=== PATIENT | male | born 1955 | race Caucasian/White ===

== ENCOUNTER 2021-01-28 16:44 | Emergency (ER) | payer MEDICARE, OTHER ==
--- OUTSIDE RECORDS SUMMARY | 2021-01-28 16:48 | XMS REPORT | Continuity of Care Document ---
:[address] [facility] t Address [address] [place] [address] Care Team Providers Name Role Phone Ian MITCHELL Primary Care Physician Ian MITCHELL Attending Clinician Kelly LAMBERT Attending Clinician Unavailable Lana MARCUS Attending Clinician Unavailable Payers Payer Name Policy Type Policy Effective Date Expiration Date Sour ce Number [facility] [id number] [facility] - MEDICARE MGD 00:00:00 - Medical CAREAARP/MEDICARE Center [id number] 2019-Present Problems Condition Condition Condition Status Onset Resolution Last Treating Co mments Source Name Details Category Date Date Treatment Clinician Date Acute pain Acute pain Disease Active [facility] left of left 3-09 [facility] knee knee [facility] 00 [facility] [place] Disease Active [facility] cardiac cardiac 2-02 [facility] - risk risk 00:00: Medical 10-20% in 10-20% in 00 Cent er next 10 next 10 years years Acquired Acquired Disease Active 2015-12 [facility] hypothyroi hypothyroi 0-14 Mikaela kes - dism dism 00:00: Medical 00 Center Non-tobacc Non-tobacc Disease Active C [facility] o user o user 7-06 [facility] - 00:[facility]: Medical 00 Center Dyslipidem Dyslipidem Disease Active C [facility] ia ia 2-18 [facility] - 00:00: Medical 00 Center Obesity, Obesity, Disease Active 2013-12 [facility] Class II, Class II, 1-18 [facility] - BMI BMI 00:00: Medical 35-39.9 35-39.9 Center HTN HTN Disease Active [facility] (hypertens (hypertens 7-17 [facility] ion), ion), 00:00: Medical benign benign [address] [place] [address] Otitis Otitis Disease Resolve 2020-08-31 2020-08-31 [facility] media media d 7-16 00:00:00 20:54:13 [facility] - 00:00: Medical [address] [place] [address] Allergies, Adverse Reactions, Alerts This patient has no known allergies or adverse reactions. Family History Family Member Diagnosis Comments Start Date Stop Date Source Natural brother Hyperlipidemia [facility] S [facility] Natural brother Hypertension [facility] Natural father Alzheimer's disease C [facility] Natural father Hypertension [facility] Natural mother Dementia [facility] Natural mother Hyperlipidemia [facility] Social History Social Habit Start Date Stop Date Quantity Comments Source History of Snuff User [facility] tobacco use Medical Cente r Sex Assigned At [facility] Tobacco use and 2020-08-31 2020-08-31 Current user [facility] - exposure 00:00:00 00:00:00 [facility] Alcohol intake 2020-08-31 2020-08-31 Current drinker [facility] - 00:00:00 00:00:00 of alcohol [facility] (finding) Alcohol Comment 2020-02-10 2020-02-10 several times a [facility] - 00:00:00 00:00:00 week [facility] Smoking Status Start Date Stop Date Source Former smoker 2020-08-31 00:00:00 2020-08-31 00:00:00 [facility] Medications Ordered Filled Start Stop Current Ordering Indication Dosage Frequency Signature Comments Components Source Medication Medication Date Date Medication? Clinician (SIG) Name Name lisinopril- Yes HTN 2 tabs [address] [facility] hydroCHLORO 2-05 (hypertensi daily in [facility] - thiazide 00:00: on), benign AM. Me dical (PRINZIDE,Z 00 Center ESTORETIC) 20-12.5 mg per tablet levothyroxi 2019-12 Yes Acquired Take [address] ne 2-14 hypothyroid (50 mcg) [facility] - (SYNTHROID, 00:00: ism po daily Me dical LEVOTHROID) 00 Fri-d Ce nter 50 MCG ay. Take tablet 11/2 tab (75 mcg) . atorvastati 2019-12- Yes Dyslipidemi 20mg QD Take [address] n (LIPITOR) 2-14 12-14 a tablet (20 L ukes - 20 MG 00:00: 23:59 mg total) Medica l tablet 00 :00 by mouth Center daily. amLODIPine 2019-12 Yes HTN 10mg QD Take 1 [facility] (NORVASC) 1-19 (hypertensi tablet (10 [facility] - 10 MG 00:00: on), benign mg total) Medical tablet 00 by mouth Center daily. lisinopril- 2019-12- No HTN [address] hydroCHLORO 0-21 02-05 (hypertensi daily in [facility] - thiazide 00:00: 00:00 on), benign AM. M edical (PRINZIDE,Z 00 :00 Center ESTORETIC) 20-12.5 mg per tablet multivitami Yes 1{tbl} QD Take [address] [facility] per 9-[address] [facility] - tablet 14:03: mouth Medical 51 daily. Center levothyroxi 2019- No Acquired Take [address] [address] ne - 12-14 hypothyroid (50 mcg) [facility] - (SYNTHROID, 00:00: 00:00 ism po daily M edical LEVOTHROID) 00 :00 Ce nter 50 MCG ay. Take tablet 11/2 tab (75 mcg) . atorvastati 2019- No Dyslipidemi 20mg QD Take [address] n (LIPITOR) 8-17 12-14 a tablet (20 L ukes - 20 MG 00:00: 00:00 mg total) Medica l tablet 00 :00 by mouth Center daily. atorvastati 2019- No Dyslipidemi 20mg QD Take [address] n (LIPITOR) 7-29 08-17 a tablet (20 L ukes - 20 MG 00:00: 00:00 mg total) Medica l tablet 00 :00 by mouth Center daily. ibuprofen 2019- No 800mg Take [address] (ADVIL,MOTR 3-20 03-20 mg by [facility] - [place]) 800 MG 11:09: 00:00 mouth Medic al tablet 01 :00 every 6 Center (six) hours as needed for Pain. ibuprofen 2019- Yes Acute pain 800mg Take [address] (ADVIL,MOTR 3-20 of left tablet [facility] - IN) 800 MG 00:00: knee (800 mg Medi fam tablet 00 total) by Center mouth every 8 (eight) hours as needed for Pain. amLODIPine 2019- No HTN 10mg QD Take [address] (NORVASC) 312 11-19 (hypertensi tablet (10 [facility] - 10 MG 00:00: 00:00 on), benign mg total) Medical tablet 00 :00 by mouth Center daily. lisinopril- 2019- No HTN [address] hydroCHLORO 02-09 10- (hypertensi daily in [facility] - thiazide 00:00: 00:00 on), benign AM. M edical (PRINZIDE,Z 00 :00 Center ESTORETIC) 20-12.5 mg per tablet levothyroxi 2019- No Acquired Take [address] ne 3 09-25 hypothyroid (50 mcg) [facility] - (SYNTHROID, 00:00: 00:00 ism po daily M edical LEVOTHROID) 00 :00 Mon-ursd Ce nter 50 MCG ay. Take tablet 10/02 tab (75 mcg) . atorvastati 2019- No Dyslipidemi 20mg QD Take [address] n (LIPITOR) 2 07-28 a tablet (20 L ukes - 20 MG 00:00: 00:00 mg total) Medica l tablet 00 :00 by mouth Center daily. lisinopril- 2019- No HTN [address] hydroCHLORO 1 03-12 (hypertensi daily in [facility] - thiazide 00:00: 00:00 on), benign AM. M edical (PRINZIDE,Z 00 :00 Center ESTORETIC) 20-12.5 mg per tablet amLODIPine 2018-12- No HTN 10mg QD Take [address] (NORVASC) 113 03-12 (hypertensi tablet (10 [facility] - 10 MG 00:00: 00:00 on), benign mg total) Medical tablet 00 :[address] [facility] Center daily. levothyroxi 2019 2020- No Acquired Take [address] ne 0-16 12 hypothyroid (50 mcg) [facility] - (SYNTHROID, 00:00: 00:00 ism po daily M edical LEVOTHROID) 00 :00 Mon-ursd Ce nter 50 MCG ay. Take tablet 10/02 tab (75 mcg) . Immunizations Ordered Immunization Filled Immunization Date Status Commen ts Source Name Name Influenza High Dose 2020-08-28 [facility]:00:00 [facility] Influenza High Dose 2019-08-10 Com[facility] Pres[facility] Free IM 00:00:00 [facility] Pneumococcal 2019-08-10 Completed [facility] - Polysaccharide 00:00:00 Medical nter (Pneumovax) Influenza Four-QIV PF 2018-08-[address] [facility] [address] [facility] - 3+YR IM 00:00:00 [facility] Influenza TIV (IM) 2016-08-[address] [facility] - 00:00:00 [facility] Influenza TIV (IM) 2015-08-13 Completed [facility] - 00:00:00 [facility] Vital Signs Vital Name Observation Time Observation Value Comments Source Systolic blood 2020-08-28 14:08:00 114 mm[Hg] [facility] pressure [facility] Diastolic blood 2020-08-28 14:08:00 79 mm[Hg] [facility] S [facility] Heart rate 2020-08-28 14:08:00 72 /min [facility] Body temperature 2020-08-28 14:08:00 36.67 Bee [facility] Body height 2020-08-28 14:08:00 177.8 cm [facility] Body weight 2020-08-28 14:08:00 109.77 kg [facility] BMI 2020-08-28 14:08:00 34.72 kg/m2 [facility] Oxygen saturation in 2020-08-28 14:08:00 97 /min [facility] - Arterial blood by Medical Ce nter Pulse oximetry Procedures Procedure Date / Time Performed Performing Clinician Sourc e COMPREHENSIVE METABOLIC 2020-08-28 14:55:00 General acute hospital LIPID PANEL 2020-08-28 14:55:00 [facility] PSA 2020-08-28 14:55:00 [facility] TSH/FREE T4 IF INDICATED 2020-08-28 14:55:00 [facility] LIPID PANEL 2020-02-10 11:35:00 [facility] COMPREHENSIVE METABOLIC 2020-02-10 11:35:00 General acute hospital TSH/FREE T4 IF INDICATED 2020-02-10 11:35:00 [facility] Plan of Care Planned Activity Planned Date Details Comments Source Future Scheduled 2021-08-[address] [facility] - Test 00:00:00 WELLNESS (YEAR 3 +) [facility] [code = MEDICARE SUBSEQUENT WELLNESS (YEAR 3 +)] Future Scheduled 2020-12-[address] [facility] - Test 00:00:00 (12+) [code = [facility] DEPRESSION SCREENING (12+)] Future Scheduled 2019-09-[address] [facility] - Test 00:00:00 malignant neoplasm of Medica l Center colon (procedure) [code = 024209332] Future Scheduled 2003 SHINGLES VACCINES ([address] [facility] - Test 00:00:00 of 2) [code = [facility] SHINGLES VACCINES (1 of 2)] Future Scheduled 1972 DTAP/TDAP/TD VACCINES [facility] - Test 00:00:00 (1 - Tdap) [code = Medical C enter DTAP/TDAP/TD VACCINES (1 - Tdap)] Future Scheduled 1971 HEPATITIS C SCREENING [facility] - Test 00:00:00 [code = HEPATITIS C Medical Center SCREENING] Results Test Description Test Time Test Comments Results Result Comments Source Comprehensive metabolic panel 2020-08-29 06:09:00 Test Item Value Reference Range Interpretation Comme nts Glucose, Serum (test code 97 mg/dL 65-99 = 20110402) BUN (test code = 20110403) 26 mg/dL 8-27 Creatinine, Serum (test 1.48 mg/dL 0.76-1.27 H code = 20110426) eGFR If NonAfricn Am (test 49 mL/min/1.73 >59 L code = ) eGFR If Africn Am (test 56 mL/min/1.73 >59 L code = ) BUN/Creatinine Ratio (test 18 10-24 code = 0315470) Sodium, Serum (test code = 136 mmol/L 134-273 6213152) Potassium, Serum (test 4.7 mmol/L 3.5-5.2 code = 20110418) Chloride, Serum (test code 99 mmol/L 96-106 = 20110420) Carbon Dioxide, Total 18 mmol/L 20-29 L (test code = ) Calcium, Serum (test code 10.0 mg/dL 8.6-10.2 = 20110331) Protein, Total, Serum 7.8 g/dL 6-8.5 (test code = 20110407) Albumin, Serum (test code 4.7 g/dL 3.8-4.8 = 20110408) Globulin, Total (test code 3.1 g/dL 1.5-4.5 = ) A/G Ratio (test code = 1.5 1.2-2.2 ) Bilirubin, Total (test 0.6 mg/dL 0-1.2 code = 20110409) Alkaline Phosphatase, S 55 See_Comment [Au tomated message] (test code = 6768-6) [facility] tem which generated this result transmitted ref erence range: 39 - 117 IU/L. The reference r dom was not used to int erpret this result as normal/abnormal . AST (SGOT) (test code = 20 See_Comment [Au tomated message] 20110413) The system [employer] generated this result transmitted ref erence range: 0 - 40 I U/L. The reference range was not used to interpr et this result as normal/abnormal . ALT (SGPT) (test code = 24 See_Comment [Au tomated message] ) The system [employer] generated this result transmitted ref erence range: 0 - 44 I U/L. The reference range was not used to interpr et this result as normal/abnormal . JOSE ANTONIO (test code = JOSE ANTONIO) Performed at: [facility] [id number] Director: Erasmo Melendez MD, Phone: [phone] Lab Interpretation (test Abnormal code = 62239-3) [facility] [id number] 06:09:00 Test Item Value Reference Range Interpretation Comments Cholesterol, Total 171 mg/dL 100-199 (test code = 2093-3) Triglycerides (test 272 mg/dL 0-149 H code = 2571-8) HDL Cholesterol (test 36 mg/dL >39 L code = 2085-9) VLDL Cholesterol Fam 45 mg/dL 5-40 H (test code = 66596-4) LDL Calculated (test 90 mg/dL 0-99 code = 29600-1) LDl/HDL Ratio (test 2.5 See_Comment code = 22823-0) LDL/HDL Ratio Men Women 1/2 Avg.Risk 1.0 1.5 Avg.Risk 3.6 3.2 2X Avg.Risk 6. 2 5.0 3X Avg.Risk 8. 0 6.1 [Automat ed message] The system which generated this result transmitted reference range : 0.0 - 3.6 ratio . The reference range was not used to interpr et this result as normal/abnormal . JOSE ANTONIO (test code = JOSE ANTONIO) Performed at: [facility] [id number] Director: Erasmo Melendez MD, Phone: [phone] Lab Interpretation Abnormal (test code = 04036-1) [facility] 06:09:00 Test Item Value Reference Range Interpretation Comments Prostate 2.4 ng/mL 0-4 Elida GimmieIA Specific Ag, methodology.Acc ording Serum (test to the Azerbaij[place] code = 0606482) Urological Association, Se rum PSA shoulddecrease and remain at undet ectable levels after radicalprostate ctomy. The AUA defines biochemical rec urrence as an initialPS A value 0.2 ng/mL or gr eater followed by a subsequent confirmatoryPSA value 0.2 ng/mL or greater.Values obtained with different assay methods or kits cannot be usedinterchange ably. Results cannot be interpreted as absolute eviden ceof the presence or absence of toy gnant disease. JOSE ANTONIO (test code Performed at: 01 = JOSE ANTONIO) - [facility] [id number] Director: Erasmo Melendez MD, Phone: [phone] [facility]Free T4 If [id number] 06:09:00 Test Item Value Reference Range Interpretation Comments TSH (test code 4.250 See_Comment [Automated m essage] = ) The system [employer] generated this result transmit yisel reference range : 0.450 - 4.50 uI U/mL. The reference r dom was not used to interpret this result as normal/abnormal . JOSE ANTONIO (test code Performed at: - = JOSE ANTONIO) [facility] [id number] Director: Erasmo Melendez MD, Phone: [phone] [facility] CenterPROMETHEUS [id number] 14:47:00 Test Item Value Reference Range Interpretation Comments ASCA IGA PAULA (BEAKER) EU/ml <8.5 SEE SCANNED (test code = 1473) ATTACHMEN T ASCA IGG PAULA (BEAKER) EU/ml <17.8 SEE SCANNED (test code = 1474) ATTACHMEN T ANTI-OMPC IGA PAULA EU/ml <10.9 SEE SCAN AMOS (BEAKER) (test code = ATTACH MENT 1475) ANTI-CBIR1 PAULA EU/ml <78.4 SEE SCANNED (BEAKER) (test code = ATTACH MENT 1476) [id number]-[id number] IGG PAULA EU/ml <44.8 SEE S CANNED (BEAKER) (test code = ATTACH MENT 1477) ANTI-FLAX IGG PAULA EU/ml <33.4 SEE SCAN AMOS (BEAKER) (test code = ATTACH MENT 1478) IBD-SPEC PANCA EU/ml <19.8 SEE SCANNED AUTOANTIBODY PAULA ATTACHMEN T (BEAKER) (test code = 1479) IFA PERINUCLEAR PATTERN Not Detected SEE SCANNED (BEAKER) (test code = ATTACH MENT 1480) DNASE SENSITIVITY Not Detected SEE SCANNE D (BEAKER) (test code = ATTACH MENT 1481) ATG 16L 1 SNP SEE SCANNED ([id number]) (BEAKER) ATTACHM ENT (test code = 2738) ECM1 SNP ([id number]) SEE SCA NNED (BEAKER) (test code = ATTACH MENT 2739) NKX2-3 SNP ([id number]) SEE SCANNED (BEAKER) (test code = ATTACH MENT 2740) STAT3 SNP ([id number]) SEE SCA NNED (BEAKER) (test code = ATTACH MENT 2741) ICAM-1 (BEAKER) (test ug/ml <0.54 SEE SC ANNED code = 2742) ATTACHMENT VCAM-1 (BEAKER) (test ug/ml <0.68 SEE SC ANNED code = 2743) ATTACHMENT VEGF (BEAKER) (test code pg/ml <345 SEE SCANNED = 2744) ATTACHMENT CRP (BEAKER) (test code mg/L <13.2 SEE SCANNED = 2745) ATTACHMENT KB (BEAKER) (test code mg/L <10.9 SEE SCANNED = 2746) ATTACHMENT PROMETHEUS Pattern not SEE SCANNED INTERPRETATION (BEAKER) consistent with IBD ATTACHMENT (test code = 2748)
[2021-01-28 19:43] LABS: Basophils % 0.9 % (0-1.3); Hematocrit 41.7 % (39.6-49.0); Lymphocytes % 20.3 % (15.3-44.8); MPV 8.4 fL (7.6-11.3); RBC Red Blood Cell Count 4.75 M/uL (4.33-5.43)
[2021-01-28 20:11] LABS: ALT/SGPT 27 U/L (12-78); AST/SGOT 19 U/L (15-37); Albumin 3.5 g/dL (3.4-5.0); Alkaline Phosphatase 56 U/L (45-117); BUN Blood Urea Nitrogen 25 mg/dL (7-18); Bicarbonate 23 mmol/L (21-32); Bilirubin Direct < 0.1 mg/dL (0-0.2); Bilirubin Total 0.3 mg/dL (0.2-1.0); Glucose Level 91 mg/dL (74-106); Lipase 163 U/L (73-393); Potassium 4.5 mmol/L (3.5-5.1); Protein, Total 8.2 g/dL (6.4-8.2); Sodium Level 140 mmol/L (136-145)
[2021-01-28] MEDS ORDERED: ONDANSETRON 4 MG/2 ML VIAL ONE (20:41)
[2021-01-28] MEDS ORDERED: NA CHLORIDE 0.9% 500 ML ONE (20:41)
--- NOTE | 2021-01-28 21:06 | RAD REPORT ---
EXAM DESCRIPTION: CT - Abdomen Pelvis W Contrast - 01/28/2021 8:47 pm CLINICAL HISTORY: Abdominal pain COMPARISON: none. TECHNIQUE: Computed axial tomography of the abdomen pelvis was obtained. 100 cc Isovue-300 was admin istered intravenously. Oral contrast was not requested which limits evaluation of bowel. All CT scans are performed using dose optimization technique as appropriate and may include automated exposure control or mA/KV adjustment according to patient size. FINDINGS: The liver, spleen, pancreas, adrenal and kidneys appear unremarkable. Diverticula stem from the colon without evidence of diverticulitis. The wall of the sigmoid and desce nding colon is mildly thickened. 5 millimeter linear density within the proximal sigmoid colon Mild anterior subluxation L4 on L5. Spondylolysis L4 Prostate gland is mildly enlarged. Small left inguinal hernia contains fat IMPRESSION: Mild thickening of the wall of the sigmoid and descending colon probably a mild colitis 5 millimeter linear density within the proximal sigmoid colon may represent normal ingested contents. A foreign body can have a similar appearance.
[2021-01-28] MEDS ORDERED: CIPROFLOXACIN HCL 500 MG TAB ONE (21:45)
[2021-01-28] MEDS ORDERED: METRONIDAZOLE 500mg IVPB 500 MG/100 ML BAG IV ONE (21:45)
[2021-01-28] MEDS ORDERED: NA CHLORIDE 0.9% 0 ML ONE (21:45)
--- NOTE | 2021-01-28 21:48 | ER ---
Nurse's Notes [facility] [place] Name: Alejandro Carrington Age: 65 yrs Sex: Male : 1955 Arrival Date: 01/28/2021 Time: 16:46 Bed 13 Private MD: Diagnosis: Infectious gastroenteritis and colitis, unspecified Presentation: 01/28 16:49 Chief complaint: Patient states: diarrhea x 1 week, today around 1630 started having sv streaked bloody stools. Hx diverticulitis. Coronavirus screen: Client denies travel out of the [place] in the last 14 days. At this time, the client does not indicate any symptoms associated with coronavirus-19. Ebola Screen: No symptoms or risks identified at this time. Risk Assessment: Do you want to hurt yourself or someone else? Patient reports no desire to harm self or others. Onset of symptoms was January 2021. 16:49 Method Of Arrival: Ambulatory sv 16:49 Acuity: ABDULAZIZ 3 sv 16:49 Coronavirus screen: Received both COVID vaccines. Initial Sepsis Screen: Does the sv patient meet any 2 criteria? No. Patient's initial sepsis screen is negative. Does the patient have a suspected source of infection? No. Patient's initial sepsis screen is negative. Triage Assessment: 16:52 General: Appears in no apparent distress. comfortable, Behavior is calm, cooperative, sv appropriate for age. Pain: Denies pain. Neuro: Level of Consciousness is awake, alert, obeys commands, Oriented to person, place, time, situation, Gait is steady. Respiratory: Respiratory effort is even, unlabored. GI: Reports bloody stool. Historical: - Allergies: 16:49 No Known Allergies; sv - PMHx: 16:49 Hypertension; Hypothyroidism; sv Screenin:23 Abuse screen: Denies threats or abuse. Nutritional screening: No deficits noted. ll2 Tuberculosis screening: No symptoms or risk factors identified. Fall Risk None identified. Assessment: 19:21 General: Appears in no apparent distress. Behavior is calm, cooperative, appropriate ll2 for age. Pain: Denies pain. Neuro: Level of Consciousness is awake, alert, obeys commands, Oriented to person, place, time, situation. Cardiovascular: Patient's skin is warm and dry. Respiratory: Airway is patent Respiratory effort is even, unlabored, Respiratory pattern is regular, symmetrical. GI: Reports bloody stool. : No signs and/or symptoms were reported regarding the genitourinary system. EENT: No signs and/or symptoms were reported regarding the EENT system. Derm: Skin is intact, is healthy with good turgor, Skin is pink, warm \T\ dry. Musculoskeletal: Circulation, motion, and sensation intact. Range of motion: intact in all extremities. 20:48 Reassessment: Patient and/or family updated on plan of care and expected duration. Pain ll2 level reassessed. Patient is alert, oriented x 3, equal unlabored respirations, skin warm/dry/pink. pt pending discharge upon completion of IV antibiotics. 21:52 Reassessment: pt awaiting completion of antibiotics prior to discharge. bb 21:58 Reassessment: Patient and/or family updated on plan of care and expected duration. Pain ll2 level reassessed. Patient is alert, oriented x 3, equal unlabored respirations, skin warm/dry/pink. Vital Signs: 16:49 BP 123 / 72; Pulse 82; Resp 16; Temp 98.6(TE); Pulse Ox 99% on R/A; Weight 109.77 kg; sv Height 5 ft. 10 in. (177.80 cm); Pain 0/10; 19:21 BP 126 / 77; Pulse 68; Resp 18; Pulse Ox 98% on R/A; ll2 16:49 Body Mass Index 34.72 (109.77 kg, 177.80 cm) sv ED Course: 16:46 Patient arrived in ED. ds1 16:49 Arm band placed on. sv 16:50 Triage completed. sv 18:43 Rafita Bacon PA is PHCP. cp 18:44 Rafita Ram MD is Attending Physician. cp 18:49 Olga Lidia Briscoe, MISHA is Primary Nurse. dm14 19:23 Patient has correct armband on for positive identification. Call light in reach. Side ll2 rails up X 1. Pulse ox on. NIBP on. 19:23 No provider procedures requiring assistance completed. ll2 20:47 CT Abd/Pelvis - IV Contrast Only In Process Unspecified. EDMS 21:46 Severino Coleman MD is Referral Physician. cp Administered Medications: 20:30 Drug: NS 0.9% 500 ml Route: IV; Rate: bolus; Site: right forearm; ll2 20:30 Drug: Zofran (Ondansetron) 4 mg Route: IVP; Site: right forearm; ll2 22:48 Follow up: Response: No adverse reaction ll2 21:36 Drug: metroNIDAZOLE 500 mg Volume: 100 ml; Route: IVPB; Infused Over: 30 mins; Site: ll2 right forearm; 21:36 Drug: Cipro 500 mg Route: PO; ll2 22:49 Follow up: Response: No adverse reaction ll2 Outcome: 21:47 Discharge ordered by MD. damon 22:49 Patient left the ED. ll2 Signatures: Dispatcher [employer] EDMS Mariana Oconnell RN RN Roselia Urban ds1 Genna Martinez RN RN Rafita Swanson PA PA cp [place], Lacie, RN RN ll2 Olga Lidia Briscoe RN RN [id number] Corrections: (The following items were deleted from the chart) 16:52 16:49 109.77 kg; Height 5 ft. 10 in.; BMI: 34.7; Pain 0/10; sv sv 16:53 16:49 Pulse 82bpm; Resp 16bpm; Pulse Ox 99%; Temp 98.6F Temporal; 109.77 kg; Height 5 sv ft. 10 in.; BMI: 34.7; Pain 0/10; sv 21:59 21:48 Reassessment: Patient and/or family updated on plan of care and expected ll2 duration. Pain level reassessed. Patient is alert, oriented x 3, equal unlabored respirations, skin warm/dry/pink. pt pending discharge upon completion of IV antibiotics ll2
--- NOTE | 2021-01-28 21:48 | EDPHYS ---
Physician Documentation [facility] Name: lAejandro Carrington Age: 65 yrs Sex: Male : 1955 Arrival Date: 01/28/2021 Time: 16:46 Bed 13 Private MD: ED Physician Rafita Ram HPI: 01/28 19:30 This 65 yrs old Male presents to ER via Ambulatory with complaints of Bloody cp Stools, Diarrhea. Historical: - Allergies: 16:49 No Known Allergies; sv - PMHx: 16:49 Hypertension; Hypothyroidism; sv ROS: 19:35 Constitutional: Negative for body aches, chills, fever, poor PO intake. cp 19:35 Eyes: Negative for injury, pain, redness, and discharge. cp 19:35 Cardiovascular: Negative for chest pain, edema, palpitations. 19:35 Respiratory: Negative for cough, shortness of breath, wheezing. 19:35 Abdomen/GI: Positive for abdominal pain, nausea, diarrhea, rectal bleeding, Negative for vomiting, constipation, black/tarry stool. 19:35 Back: Negative for radiated pain. 19:35 Neuro: Negative for altered mental status, headache, syncope, weakness. 19:35 All other systems are negative. Exam: 19:40 Head/Face: Normocephalic, atraumatic. cp 19:40 Constitutional: The patient appears in no acute distress, alert, awake, comfortable, non-diaphoretic, non-toxic, well developed, well nourished. 19:40 Eyes: Periorbital structures: appear normal, Conjunctiva: normal, no exudate, no injection, Sclera: no appreciated abnormality, Lids and lashes: appear normal, bilaterally. 19:40 ENT: External ear(s): are unremarkable, Nose: is normal, Mouth: Lips: moist, Oral mucosa: moist, Posterior pharynx: Airway: no evidence of obstruction, patent. 19:40 Chest/axilla: Inspection: normal, Palpation: is normal, no crepitus, no tenderness. 19:40 Cardiovascular: Rate: normal, Rhythm: regular. 19:40 Respiratory: the patient does not display signs of respiratory distress, Respirations: normal, no use of accessory muscles, no retractions, labored breathing, is not present, Breath sounds: are clear throughout, no decreased breath sounds, no stridor, no wheezing. 19:40 Abdomen/GI: Inspection: abdomen appears normal, Bowel sounds: active, all quadrants, Palpation: soft, in all quadrants, mild abdominal tenderness, in the right upper quadrant and left upper quadrant, rebound tenderness, is not appreciated, voluntary guarding, is not appreciated, involuntary guarding, is not appreciated. 19:40 Back: CVA tenderness, is absent. Vital Signs: 16:49 BP 123 / 72; Pulse 82; Resp 16; Temp 98.6(TE); Pulse Ox 99% on R/A; Weight 109.77 kg; sv Height 5 ft. 10 in. (177.80 cm); Pain 0/10; 19:21 BP 126 / 77; Pulse 68; Resp 18; Pulse Ox 98% on R/A; ll2 16:49 Body Mass Index 34.72 (109.77 kg, 177.80 cm) sv MDM: 18:47 Patient medically screened. cp 19:35 Differential diagnosis: gastritis, diverticulitis, viral gastroenteritis, cp gastroenteritis, colitis. 21:45 Data reviewed: vital signs, nurses notes, lab test result(s), radiologic studies, CT cp scan, and as a result, I will discharge patient. 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 ED course: VSS. Patient appears non-toxic and in no distress. Mild TTP of abdomen on exam. Will discharge to home to take oral antibiotics and f/u with GI. 01/28 19:17 Order name: Basic Metabolic Panel; Complete Time: 20:19 cp 01/28 19:17 Order name: CBC with Diff; Complete Time: 20:19 cp 01/28 19:17 Order name: Hepatic Function; Complete Time: 20:19 cp 01/28 19:17 Order name: Lipase; Complete Time: 20:19 cp 01/28 19:34 Order name: CT Abd/Pelvis - IV Contrast Only; Complete Time: 21:17 cp 01/28 19:17 Order name: IV Saline Lock; Complete Time: 20:22 cp 01/28 19:17 Order name: Labs collected and sent; Complete Time: 20:22 cp 01/28 21:19 Order name: PO challenge; Complete Time: 21:36 cp Administered Medications: 20:30 Drug: NS 0.9% 500 ml Route: IV; Rate: bolus; Site: right forearm; ll2 20:30 Drug: Zofran (Ondansetron) 4 mg Route: IVP; Site: right forearm; ll2 22:48 Follow up: Response: No adverse reaction ll2 21:36 Drug: metroNIDAZOLE 500 mg Volume: 100 ml; Route: IVPB; Infused Over: 30 mins; Site: ll2 right forearm; 21:36 Drug: Cipro 500 mg Route: PO; ll2 22:49 Follow up: Response: No adverse reaction ll2 Disposition: 01/29 06:27 Co-signature as Attending Physician, Rafita Ram MD I agree with the assessment and [facility] plan of care. Disposition: 01/28/21 21:47 Discharged to Home. Impression: Infectious gastroenteritis and colitis, unspecified. - Condition is Stable. - Discharge Instructions: Colitis. - Prescriptions for Bentyl 20 mg Oral Tablet - take 1 tablet by ORAL route every 6 hours As needed; 20 tablet. Zofran 4 mg Oral Tablet - take 1 tablet by ORAL route every 12 hours As needed; 20 tablet. Cipro 500 mg Oral Tablet - take 1 tablet by ORAL route every 12 hours for 10 days; 20 tablet. Metronidazole 500 mg Oral Tablet - take 1 tablet by ORAL route every 8 hours; 30 tablet. - Medication Reconciliation Form, Thank You Letter, Antibiotic Education, Prescription Opioid Use form. - Follow up: Severino Coleman MD; When: 2 - 3 days; Reason: Recheck today's complaints. - Problem is new. - Symptoms have improved. Signatures: Dispatcher [employer] Mariana Peacock RN RN sv Anderson, Corey, MD MD cha Page, Corey, PA PA cp Linscombe, Lacie, RN RN ll2 Corrections: (The following items were deleted from the chart) 01/28 22:49 21:47 01/28/2021 21:47 Discharged to Home. Impression: Infectious gastroenteritis and ll2 colitis, unspecified. Condition is Stable. Forms are Medication Reconciliation Form, Thank You Letter, Antibiotic Education, Prescription Opioid Use. Follow up: Severino Coleman; When: 2 - 3 days; Reason: Recheck today's complaints. Problem is new. Symptoms have improved. cp
[2021-01-29 02:36] VITALS: TEMP 98.6
[2021-01-29 02:38] VITALS: BP 126/77; O2SAT 98
== END 2021-01-28 22:49 | disposition home or self-care (01) ==
LOC: ER 16:44
DX: A09 Infectious gastroenteritis and colitis, unspecified (principal); I10 Essential (primary) hypertension
CPT/HCPCS: 85025; 80048; 36415; 80076; 83690; 74177; 96375; 96374; 99283; Q9967; J7040; J2405

== ENCOUNTER 2022-02-18 12:53 | Emergency (ER) | payer OTHER ==
--- OUTSIDE RECORDS SUMMARY | 2022-02-18 12:58 | XMS REPORT | Continuity of Care Document ---
:1955 Author Organization [facility] t Address [address] [place] [address] Care Team Providers Name Role Phone AROLDO Primary Care Physician Unavailable AROLDO Attending Clinician Unavailable NURSE Attending Clinician Unavailable Lana MARCUS Attending Clinician Unavailable Payers Payer Name Policy Type Policy Number Effective Date Expiration Date Tom BATRES MEDICARE [id number] 2020 00:00:00 Problems This patient has no known problems. Allergies, Adverse Reactions, Alerts Allergy Allergy Status Severity Reaction(s) Onset Inactive Treating Comm ents Source Name Type Date Date Clinician NO KNOWN Allergy Active [facility] ALLERGIE S Social History Social Habit Start Date Stop Date Quantity Comments Source Sex Assigned At Male [facility] Smoking Status Start Date Stop Date Source Unknown if ever smoked Access He alth Medications This patient has no known medications. Vital Signs Vital Name Observation Time Observation Value Comments Source HEIGHT 2021-08-30 11:01:00 177.8 cm WEIGHT 2021-08-30 11:01:00 104.237 kg HEIGHT 2021-02-27 13:14:00 177.8 cm WEIGHT 2021-02-27 13:14:00 112.038 kg HEIGHT 2020-08-28 00:00:00 177.8 cm WEIGHT 2020-08-28 00:00:00 109.77 kg Procedures This patient has no known procedures. Encounters Start End Encounter Admission Attending Care Care Encounter Source Date/Time Date/Time Type Type Clinicians Facility Department ID 2022-02-27 2022-02-[address] [facility] [id number] 00:00:00 00:00:00 [facility] 2021-08-30 2021-08-[address] [facility] [id number] 00:00:00 00:00:00 [facility] 2021-05-18 2021-05-[address] [facility] [id number] 00:00:00 00:00:00 [facility] 2021-05-18 2021-05-18 Outpatient AROLDO, [facility] [id number] [facility] 00:00:00 00:00:00 [facility] 2021-02-27 2021-02-[address] [facility] [id number] 00:00:00 00:00:00 [facility] 2021-01-25 2021-01-25 Outpatient NURSE, [facility] [id number] Access 18:52:00 18:52:00 NURSE [facility] 2021-01-25 2021-01-25 Outpatient NURSE, [facility] [id number] [id number] Access 18:52:00 18:52:00 NURSE [id number] [facility] [id number] 2020-08-28 2020-08-[address] [facility] [id number] 00:00:00 00:00:00 [facility] 2020-08-28 2020-08-[address] [facility] [id number] 00:00:00 00:00:00 [facility] 2020-02-10 2020-02-[address] [facility] [id number] 00:00:00 00:00:00 [id number] [facility] Results Test Description Test Time Test Comments Results Result Sourc e Comments RAD, SINUSES 2021-05-18 Reason for PARANASAL, MIN 3 13:58:00 Exam:->left VIEWS side sinus pain. R./O [facility] LEMUS : 1955 Sex: M *FINAL REPORT Paranasal sinuses, 05/18/2021 There is soft tissue opacity in the right maxillary antrum that may represent polyp or other abnormality. Correlation with CT imaging is recommended for further evaluation. The left measuring maxillary antrum, ethmoid and sphenoid sinuses appear unremarkable. There is incomplete aeration of the inferior aspect of the right frontal sinus that may represent fluid or other soft tissue process. This also could be evaluated with paranasal sinus CT. Mastoid air cells appear to be symmetrically aerated. Sella turcica is not enlarged. CONCLUSION: Incomplete aeration of the right maxillary and frontal sinuses. Further evaluation is recommended. Signed: Chiki Darby MDReport Verified Date/Time: 05/18/2021 13:58:37 Reading Location: [facility] Radiology Reading Room [facility] IBD 2018-11-30 14:47:00 Test Item Value Reference Range Interpretation Comme nts ASCA IGA PAULA ([employer]) (test EU/ml <8.5 SEE SCANNED ATTACHMENT code = 1473) ASCA IGG PAULA ([employer]ters[employer]AKER) (test EU/ml <17.8 SEE SCANNED ATTACHMENT code = 1474) ANTI-OMPC IGA PAULA ([employer]ters[employer]AKER) EU/ml <10.9 SEE SCANNED ATTACHMENT (test code = 1475) ANTI-CBIR1 PAULA (BEAKER) EU/ml <78.4 SE E SCANNED ATTACHMENT (test code = 1476) [id number] IGG PAULA EU/ml <44.8 SEE S CANNED ATTACHMENT (BEAKER) (test code = 1477) ANTI-FLAX IGG PAULA (BEAKER) EU/ml <33.4 SEE SCANNED ATTACHMENT (test code = 1478) IBD-SPEC PANCA AUTOANTIBODY EU/ml <19.8 SEE SCANNED ATTACHMENT PAULA (BEAKER) (test code = 1479) IFA PERINUCLEAR PATTERN Not Detected SEE SCANNED ATTACHMENT (BEAKER) (test code = 1480) DNASE SENSITIVITY (BEAKER) Not Detected S EE SCANNED ATTACHMENT (test code = 1481) ATG 16L 1 SNP ([id number]) SE E SCANNED ATTACHMENT (BEAKER) (test code = 2738) ECM1 SNP ([id number]) (BEAKER) SEE SCANNED ATTACHMENT (test code = 2739) NKX2-3 SNP ([id number]) SEE SCANNED ATTACHMENT (BEAKER) (test code = 2740) STAT3 SNP ([id number]) (BEAKER) SEE SCANNED ATTACHMENT (test code = 2741) ICAM-1 (BEAKER) (test code = ug/ml <0.54 SEE SCANNED ATTACHMENT 2742) VCAM-1 (BEAKER) (test code = ug/ml <0.68 SEE SCANNED ATTACHMENT 2743) VEGF (BEAKER) (test code = pg/ml <345 S EE SCANNED ATTACHMENT 2744) CRP (BEAKER) (test code = mg/L <13.2 SE E SCANNED ATTACHMENT 2745) KB (BEAKER) (test code = mg/L <10.9 SE E SCANNED ATTACHMENT 2746) PROMETHEUS INTERPRETATION Pattern not consistent SEE SCANNED ATTACHMENT (BEAKER) (test code = 2748) with IBD
[2022-02-18 14:01] LABS: Absolute Lymphocytes (CBC) 0.7 K/uL (0.7-4.9); Hematocrit 34.1 % (39.6-49.0); Lymphocytes % 5.2 % (15.3-44.8); MPV 7.5 fL (7.6-11.3); RBC Red Blood Cell Count 4.24 M/uL (4.33-5.43)
[2022-02-18 14:04] LABS: Protime INR 1.07
[2022-02-18] MEDS ORDERED: ACETAMINOPHEN 650MG/RECT SUPP PR ONE (14:04)
[2022-02-18] MEDS ORDERED: CEFTRIAXONE 1000 MG/VIAL ONE (14:04)
[2022-02-18] MEDS ORDERED: NA CHLORIDE 0.9% 50 ML ONE (14:05)
[2022-02-18 14:15] LABS: Albumin 3.1 g/dL (3.4-5.0); Bilirubin Total 0.7 mg/dL (0.2-1.0); Potassium 3.6 mmol/L (3.5-5.1); Protein, Total 6.4 g/dL (6.4-8.2)
[2022-02-18] MEDS ORDERED: ACETAMINOPHEN 325 MG TABLET ONE (14:17)
--- NOTE | 2022-02-18 14:55 | RAD REPORT ---
EXAM DESCRIPTION: RAD - Chest Single View - 02/18/2022 2:18 pm CLINICAL HISTORY: Fever and chills Chest pain. COMPARISON: Chest Pa And Lat (2 Views) dated 03/08/2017; Chest Abdomen Pelvis W Cont dated 02/18/2022 FINDINGS: Portable technique limits examination quality. The lungs are grossly clear. The heart is normal in size. No displaced fractures. IMPRESSION: No acute intrathoracic process suspected.
--- NOTE | 2022-02-18 14:55 | RAD REPORT ---
EXAM DESCRIPTION: CT - Chest Abdomen Pelvis W Cont - 02/18/2022 2:46 pm CLINICAL HISTORY: Chest and abdomen pain. rigors COMPARISON: Chest Single View dated 02/18/2022 TECHNIQUE: Approximately 100 mL nonionic IV contrast was administered to the patient. All CT scans are performed using dose optimization technique as appropriate and may include automated exposure control or mA/KV adjustment according to patient size. FINDINGS: The lungs are clear.No pleural or pericardial effusion.No intrathoracic adenopathy. The liver, spleen, pancreas, adrenal glands and kidneys are within normal limits. No bowel obstruction, free air, free fluid or abscess. Normal appendix. There is moderate colonic inf lammation seen greatest in sigmoid colon numerous surrounding lymph nodes present. This likely indica bipin a colitis primarily of descending and sigmoid colon although appears to be some involvement as we ll the cecum. Prostate gland is prominent. No worrisome osseous finding. IMPRESSION: Moderate colitis pattern is seen greatest involving the descending and rectosigmoid colo n.
[2022-02-18] MEDS ORDERED: CIPROFLOXACIN HCL 500 MG TAB ONE (17:25)
[2022-02-18] MEDS ORDERED: metroNIDAZOLE 500 MG TABLET ONE (17:25)
--- NOTE | 2022-02-18 17:47 | ER ---
Nurse's Notes [facility] Name: Alejandro Carrington Age: 66 yrs Sex: Male : 1955 Arrival Date: 02/18/2022 Time: 12:57 Bed 20 Private MD: Diagnosis: Colitis, abdominal pain Presentation: 02/18 13:16 Chief complaint: Patient states: chills since 11am today, pt also reports anal aa5 pressure. Pt states "they've been trying to get my chron's under control for a while with some infusions". Pt's reports fever up to 101.0*F today and took "2 Tylenol around 1145". Coronavirus screen: chills. Ebola Screen: No symptoms or risks identified at this time. Initial Sepsis Screen: Does the patient meet any 2 criteria? HR > 90 bpm. Does the patient have a suspected source of infection? Yes:. Risk Assessment: Do you want to hurt yourself or someone else? Patient reports no desire to harm self or others. Onset of symptoms was January 2022. 13:16 Acuity: ABDULAZIZ 3 aa5 13:16 Method Of Arrival: Ambulatory aa5 Historical: - Allergies: 13:15 No Known Allergies; aa5 - PMHx: 13:14 Hypertension; Hypothyroidism; aa5 13:15 Chron's; aa5 - Immunization history:: Flu vaccine is up to date. Client reports receiving the 2nd dose of the Covid vaccine. - Social history:: Smoking status: Patient denies any tobacco usage or history of. Screenin:25 Abuse screen: Denies threats or abuse. Nutritional screening: No deficits noted. ap3 Tuberculosis screening: No symptoms or risk factors identified. Fall Risk No fall in past 12 months (0 pts). Assessment: 13:24 General: Appears in no apparent distress. Behavior is calm, cooperative, appropriate ap3 for age, Reports chills for fever for fatigue for. Pain: Denies pain. Neuro: Level of Consciousness is awake, alert, obeys commands, Oriented to person, place, time, situation, Appropriate for age Gait is steady, Speech is normal. Cardiovascular: Patient's skin is warm and dry. Respiratory: Airway is patent Respiratory effort is even, unlabored, Respiratory pattern is regular, symmetrical. GI: Parent/caregiver reports the patient having anal pressure. 15:25 Reassessment: Patient and/or family updated on plan of care and expected duration. Pain ap3 level reassessed. Patient is alert, oriented x 3, equal unlabored respirations, skin warm/dry/pink. 17:52 Reassessment: Patient and/or family updated on plan of care and expected duration. Pain ap3 level reassessed. Patient is alert, oriented x 3, equal unlabored respirations, skin warm/dry/pink. Vital Signs: 13:16 BP 99 / 56; Pulse 110; Resp 22 S; Temp 100.1(TE); Pulse Ox 95% on R/A; aa5 14:01 BP 109 / 60; Pulse 101; Pulse Ox 96% ; Weight 99.79 kg; Height 5 ft. 10 in. (177.80 cm);ap3 14:22 BP 100 / 61; Pulse 98; Pulse Ox 98% on R/A; ap3 15:25 BP 100 / 59; Pulse 77; Pulse Ox 98% on R/A; ap3 15:46 Temp 98.9; ap3 16:39 BP 90 / 61; Pulse 70; Pulse Ox 97% on R/A; ap3 14:01 Body Mass Index 31.57 (99.79 kg, 177.80 cm) ap3 ED Course: 12:57 Patient arrived in ED. mr 13:14 Arm band placed on. aa5 13:18 Triage completed. aa5 13:24 Pema Jean Baptiste, RN is Primary Nurse. ap3 13:25 Patient has correct armband on for positive identification. Bed in low position. Call ap3 light in reach. Side rails up X 1. Adult w/ patient. Pulse ox on. NIBP on. Door closed. Noise minimized. 13:30 Jadon Jon MD is Attending Physician. kdr 14:00 EKG done, by ED staff, reviewed by Jadon Jon MD. mb7 14:15 Inserted saline lock: 20 gauge in right forearm, using aseptic technique. ap3 14:18 Chest Single View XRAY In Process Unspecified. EDMS 14:[address] via stretcher. ap3 14:46 CT Chest, Abdomen, Pelvis - W/Contrast In Process Unspecified. EDMS 16:37 Warm blanket given. ap3 17:46 Driss Abebe MD is Referral Physician. kdr 17:52 No provider procedures requiring assistance completed. ap3 18:04 IV discontinued, intact, bleeding controlled, No redness/swelling at site. Pressure ap3 dressing applied. Administered Medications: 14:21 Not Given (order changee): Acetaminophen Suppository 650 mg AR once ap3 14:21 Drug: Rocephin - (cefTRIAXone) 1 grams Route: IVPB; Infused Over: 30 mins; Site: right ap3 forearm; 15:43 Follow up: IV Status: Completed infusion; IV Intake: 50ml ap3 14:22 Drug: Acetaminophen 650 mg Route: PO; ap3 15:43 Follow up: Response: No adverse reaction ap3 17:26 Drug: Cipro (ciprofloxacin) 500 mg Route: PO; aa5 18:03 Follow up: Response: No adverse reaction ap3 17:26 Drug: Flagyl (metroNIDAZOLE) 500 mg Route: PO; aa5 18:03 Follow up: Response: No adverse reaction ap3 Intake: 15:43 IV: 50ml; Total: 50ml. ap3 Outcome: 17:47 Discharge ordered by . kdr 18:03 Discharged to home ambulatory, with family. ap3 18:03 Condition: good 18:03 Discharge instructions given to patient, family, Instructed on discharge instructions, follow up and referral plans. medication usage, Demonstrated understanding of instructions, follow-up care, medications, Prescriptions given X 4. 18:04 Patient left the ED. ap3 Signatures: Dispatcher [employer] EDMS Jadon Jon MD MD kdr Rivera, Mary mr Sheela Powell RN RN aa5 Pema Jean Baptiste RN RN ap3 Alpa Reynolds RN RN ld1 Jasmyn Garrison mb7 Corrections: (The following items were deleted from the chart) 13:35 13:16 Initial Sepsis Screen: Does the patient meet any 2 criteria? HR > 90 bpm. Does ld1 the patient have a suspected source of infection? Yes: aa5 18:52 14:01 BP 109 / 60; Pulse 101bpm; Resp 96bpm; Pulse Ox 96%; 99.79 kg; Height 5 ft. 10 ap3 in.; BMI: 31.5; mb7
--- NOTE | 2022-02-18 17:47 | EDPHYS ---
Physician Documentation [facility] Name: Alejandro Carrington Age: 66 yrs Sex: Male : 1955 Arrival Date: 02/18/2022 Time: 12:57 Bed 20 Private MD: ED Physician Jadon Jon HPI: 02/18 18:23 This 66 yrs old Male presents to ER via Ambulatory with complaints of Fever, Shivering. kdr 18:23 At about 11 AM today, the patient began to have chills. He also has a feeling of some kdr pressure around his anal region. About 1145 the patient took 2 Tylenols subsequently and about 1/2-hour after that began to feel back to his normal self. Patient and his report that they have been trying to get his Crohn's disease under control for a while with some effusions however this has not been entirely successful. Patient denies any other concerns or complaints. Patient is nontoxic-appearing is otherwise comfortable. Onset: The symptoms/episode began/occurred suddenly, just prior to arrival, this morning. Severity of symptoms: At their worst the symptoms were mild moderate just prior to arrival, in the emergency department the symptoms have improved markedly. The patient has not experienced similar symptoms in the past. The patient has been recently seen by a physician: the patient's primary care provider. Historical: - Allergies: 13:15 No Known Allergies; aa5 - PMHx: 13:14 Hypertension; Hypothyroidism; aa5 13:15 Chron's; aa5 - Immunization history:: Flu vaccine is up to date. Client reports receiving the 2nd dose of the Covid vaccine. - Social history:: Smoking status: Patient denies any tobacco usage or history of. ROS: 18:23 Constitutional: Negative for weight loss. kdr 18:23 Eyes: Negative for injury, pain, redness, and discharge, Neck: Negative for injury, pain, and swelling, Cardiovascular: Negative for chest pain, palpitations, and edema, Respiratory: Negative for shortness of breath, cough, wheezing, and pleuritic chest pain, Back: Negative for injury and pain, : Negative for injury, bleeding, discharge, and swelling, MS/Extremity: Negative for injury and deformity, Skin: Negative for injury, rash, and discoloration, Neuro: Negative for headache, weakness, numbness, tingling, and seizure activity. Psych: Negative for depression, anxiety, suicide ideation, homicidal ideation, and hallucinations, Allergy/Immunology: Negative for hives, rash, and allergies, Endocrine: Negative for neck swelling, polydipsia, polyuria, polyphagia, and marked weight changes, Hematologic/Lymphatic: Negative for swollen nodes, abnormal bleeding, and unusual bruising. 18:23 Constitutional: Positive for chills, fever, malaise. 18:23 Abdomen/GI: Positive for abdominal pain, nausea, of the left lower quadrant, Negative for abdominal distension, anorexia, dysphagia, hematemesis, black/tarry stool, rectal bleeding, bowel incontinence. Exam: 18:23 Constitutional: This is a well developed, well nourished patient who is awake, alert, kdr and in no acute distress. Head/Face: Normocephalic, atraumatic. Eyes: Pupils equal round and reactive to light, extra-ocular motions intact. Lids and lashes normal. Conjunctiva and sclera are non-icteric and not injected. Cornea within normal limits. Periorbital areas with no swelling, redness, or edema. Neck: Trachea midline, no thyromegaly or masses palpated, and no cervical lymphadenopathy. Supple, full range of motion without nuchal rigidity, or vertebral point tenderness. No Meningismus. Chest/axilla: Normal chest wall appearance and motion. Nontender with no deformity. No lesions are appreciated. Cardiovascular: Regular rate and rhythm with a normal S1 and S2. No gallops, murmurs, or rubs. Normal PMI, no JVD. No pulse deficits. Respiratory: Lungs have equal breath sounds bilaterally, clear to auscultation and percussion. No rales, rhonchi or wheezes noted. No increased work of breathing, no retractions or nasal flaring. Back: No spinal tenderness. No costovertebral tenderness. Full range of motion. Skin: Warm, dry with normal turgor. Normal color with no rashes, no lesions, and no evidence of cellulitis. MS/ Extremity: Pulses equal, no cyanosis. Neurovascular intact. Full, normal range of motion. Neuro: Awake and alert, GCS 15, oriented to person, place, time, and situation. Cranial nerves II-XII grossly intact. Motor strength 5/5 in all extremities. Sensory grossly intact. Cerebellar exam normal. Normal gait. Psych: Awake, alert, with orientation to person, place and time. Behavior, mood, and affect are within normal limits. 18:23 Abdomen/GI: Inspection: abdomen appears normal, obese Bowel sounds: active, all quadrants, diminished, Palpation: soft, mild abdominal tenderness, in the anterior aspect of left lateral abdomen, posterior aspect of left lateral abdomen and left lower quadrant. Vital Signs: 13:16 BP 99 / 56; Pulse 110; Resp 22 S; Temp 100.1(TE); Pulse Ox 95% on R/A; aa5 14:01 BP 109 / 60; Pulse 101; Pulse Ox 96% ; Weight 99.79 kg; Height 5 ft. 10 in. (177.80 cm);ap3 14:22 BP 100 / 61; Pulse 98; Pulse Ox 98% on R/A; ap3 15:25 BP 100 / 59; Pulse 77; Pulse Ox 98% on R/A; ap3 15:46 Temp 98.9; ap3 16:39 BP 90 / 61; Pulse 70; Pulse Ox 97% on R/A; ap3 14:01 Body Mass Index 31.57 (99.79 kg, 177.80 cm) ap3 MDM: 17:47 Patient medically screened. kdr 18:23 Data reviewed: vital signs, nurses notes, lab test result(s), radiologic studies. kdr Counseling: I had a detailed discussion with the patient and/or guardian regarding: the historical points, exam findings, and any diagnostic results supporting the discharge/admit diagnosis, lab results, radiology results, the need for outpatient follow up. 02/18 13:31 Order name: Blood Culture Adult (2) kdr 02/18 13:31 Order name: CBC with Diff kdr 02/18 13:31 Order name: CMP kdr 02/18 13:31 Order name: Lactate kdr 02/18 13:31 Order name: Protime (+inr); Complete Time: 16:53 kdr 02/18 13:31 Order name: Ptt, Activated; Complete Time: 16:53 kdr 02/18 13:31 Order name: Chest Single View XRAY; Complete Time: 16:53 kdr 02/18 13:31 Order name: Blood Culture EDCO 02/18 13:31 Order name: CBC with Automated Diff; Complete Time: 16:53 EDMS 02/18 13:31 Order name: Comprehensive Metabolic Panel; Complete Time: 16:53 EDMS 02/18 13:31 Order name: Lactate; Complete Time: 16:53 EDMS 02/18 13:55 Order name: CT Chest, Abdomen, Pelvis - W/Contrast; Complete Time: 16:53 kdr 02/18 13:31 Order name: Accucheck; Complete Time: 14:10 kdr 02/18 13:31 Order name: Cardiac monitoring; Complete Time: 13:55 kdr 02/18 13:31 Order name: EKG - Nurse/Tech; Complete Time: 13:55 kdr 02/18 13:31 Order name: IV Saline Lock - Large Bore; Complete Time: 14:21 kdr 02/18 13:31 Order name: Labs collected and sent; Complete Time: 14:10 kdr 02/18 13:31 Order name: O2 Per Protocol; Complete Time: 13:56 kdr 02/18 13:31 Order name: O2 Sat Monitoring; Complete Time: 13:56 kdr Administered Medications: 14:21 Not Given (order changee): Acetaminophen Suppository 650 mg PA once ap3 14:21 Drug: Rocephin - (cefTRIAXone) 1 grams Route: IVPB; Infused Over: 30 mins; Site: right ap3 forearm; 15:43 Follow up: IV Status: Completed infusion; IV Intake: 50ml ap3 14:22 Drug: Acetaminophen 650 mg Route: PO; ap3 15:43 Follow up: Response: No adverse reaction ap3 17:26 Drug: Cipro (ciprofloxacin) 500 mg Route: PO; aa5 18:03 Follow up: Response: No adverse reaction ap3 17:26 Drug: Flagyl (metroNIDAZOLE) 500 mg Route: PO; aa5 18:03 Follow up: Response: No adverse reaction ap3 Disposition Summary: 02/18/22 17:47 Discharge Ordered Location: Home kdr Problem: an acute exacerbation kdr Symptoms: have improved kdr Condition: Stable kdr Diagnosis - Colitis, abdominal pain kdr Followup: kdr - With: Private Physician - When: 2 - 3 days - Reason: If symptoms return, Further diagnostic work-up, Recheck today's complaints, Continuance of care, Re-evaluation by your physician Followup: kdr - With: Driss Abebe MD - When: 1 - 2 days - Reason: If symptoms return, Further diagnostic work-up, Recheck today's complaints, Continuance of care, Re-evaluation by your physician Discharge Instructions: - Discharge Summary Sheet kdr Forms: - Medication Reconciliation Form kdr - Thank You Letter kdr - Antibiotic Education kdr Prescriptions: - Cipro 500 mg Oral Tablet - take 1 tablet by ORAL route every 12 hours for 10 days; 20 tablet; Refills: 0, kdr Product Selection Permitted - Flagyl 500 mg Oral Tablet - take 1 tablet by ORAL route every 6 hours for 10 days; 40 tablet; Refills: 0, kdr Product Selection Permitted - Zofran 4 mg Oral Tablet - take 1 tablet by ORAL route every 4-6 hours As needed; 12 tablet; Refills: 0, kdr Product Selection Permitted - Tramadol 50 mg Oral Tablet - take 1 tablet by ORAL route every 8 hours as needed; 12 tablet; Refills: 0, kdr Product Selection Permitted Signatures: Dispatcher [employer] Jadon Oliveros MD MD kdr Sheela Powell, RN RN aa5 Pema Jean Baptiste RN RN ap3
[2022-02-18 18:14] VITALS: TEMP 98.9
[2022-02-18 18:15] VITALS: BP 90/61; O2SAT 97
--- NOTE | 2022-02-19 08:45 | EKG ---
Test Date: 2022-02-18 Test Time: 13:55:01 Commercial Reporter: MAGUE MEASUREMENT RESULTS: Intervals: Rate: 100 UT: 160 QRSD: 82 QT: 312 QTc: 402 [place]: P: 67 UT: 160 QRS: 54 T: 44 INTERPRETIVE STATEMENTS: Normal sinus rhythm Normal ECG Compared to ECG 06/03/2008 13:56:47 No significant changes Electronically Signed On 02-19-22 08:42:22 CDT by Yefri Ayala
== END 2022-02-18 18:04 | disposition home or self-care (01) ==
LOC: ER 12:53
DX: K52.9 Noninfective gastroenteritis and colitis, unspecified (principal); R10.9 Unspecified abdominal pain; I10 Essential (primary) hypertension
CPT/HCPCS: 96365; 93005; 87040 ×2; 85025; 36415; 85610; 83605; 85730; 80053; 71260; 74177; 71045; 99284; Q9967

== ENCOUNTER 2024-04-02 10:43 | Emergency (ER) | payer OTHER ==
[2024-04-02] MEDS ORDERED: ONDANSETRON 4 MG/2 ML VIAL ONE (11:02)
[2024-04-02] MEDS ORDERED: MORPHINE 4 MG/ML SYR ONE (11:02)
[2024-04-02] MEDS ORDERED: NA CHLORIDE 0.9% 1,000 ML ONE (11:02)
[2024-04-02 11:52] LABS: Absolute Eosinophils 0.1 K/uL (0-0.5); Absolute Monocytes 1.2 K/uL (0.1-1.3); Absolute Neutrophil 6.2 K/uL (1.8-8.0); Basophils % 0.2 % (0-1.3); Eosinophils % 0.7 % (0-4.4); Hematocrit 36.1 % (39.6-49.0); Lymphocytes % 11.9 % (15.3-44.8); MCH 30.1 pg (27.0-35.0); MCHC 33.3 g/dL (32.0-36.0); MCV 90.4 fL (80-100); MPV 7.7 fL (7.6-11.3); Neutrophils % 73.2 % (41.7-73.7); Platelets 406 thou/uL (152-406); Red Cell Distribution Width 15.2 % (12.1-15.2)
[2024-04-02 12:02] LABS: Albumin 4.2 g/dL (3.4-5.0); Albumin/Globulin Ratio 1.2 (1.1-1.8); Anion Gap 9.1 mEq/L (5.0-15.0); Bilirubin Total 0.8 mg/dL (0.2-1.0); Globulin 3.5 g/dL (2.3-3.5); Potassium 4.1 mEq/L (3.5-5.1); Protein, Total 7.7 g/dL (6.4-8.2); Troponin High Sensitivity 3.7 pg/mL (<58.9)
--- NOTE | 2024-04-02 12:05 | RAD REPORT ---
EXAM DESCRIPTION: CTAbdomen Pelvis W Contrast - 04/02/2024 11:51 am CLINICAL HISTORY: Abdominal pain. CROHNS FLARE UP COMPARISON: Abdomen Pelvis W Contrast dated 01/28/2021 TECHNIQUE: Biphasic CT imaging of the abdomen and pelvis was performed with 100 ml non-ionic IV cont rast. All CT scans are performed using dose optimization technique as appropriate and may include automated exposure control or mA/KV adjustment according to patient size. FINDINGS: The lung bases are clear. The liver demonstrates diffuse fatty infiltration. Spleen, pancreas, adrenal glands and kidneys are w ithin normal limits. No bowel obstruction, free air, free fluid or abscess. Prominent sigmoid diverticulosis coli particul fermín in left lower quadrant. There is subtle reticulation of the adjacent fat. The appendix is normal . No evidence of significant lymphadenopathy. Prostate gland is mildly prominent in size and projects in the bladder base. Small fat containing ing uinal hernias, greater on the left. Mild lower lumbar degenerative changes. IMPRESSION: Early/mild acute diverticulitis is possible involving the sigmoid colon in the left lowe r quadrant. Otherwise, acute findings seen. Mild diffuse fatty liver.
[2024-04-02] MEDS ORDERED: METRONIDAZOLE 500mg IVPB 500 MG/100 ML BAG IV ONE (13:11)
[2024-04-02] MEDS ORDERED: CIPROFLOXACIN 400mg IV 400 MG/200 ML BAG IV ONE (13:11)
--- NOTE | 2024-04-02 13:11 | EDPHYS ---
Physician Documentation [facility] Name: Alejandro Carrington Age: 68 yrs Sex: Male : 1955 Arrival Date: 04/02/2024 Time: 10:43 Bed 20 Private MD: Ralf Adams ED Physician Dashawn Patricio HPI: 04/02 11:00 This 68 yrs old Male presents to ER via Ambulatory with complaints of Andrew's flare up. sp3 11:00 68-year-old male with history of Crohn's disease presents with a 3-day history of sp3 abdominal cramping and diarrhea after attending a "[employer] boil". He states other people there became ill after the event as well. He denies any fever or vomiting or back pain. Review of systems he denies headache, URI symptoms, chest pain, shortness of breath, syncope, near syncope, bleeding, rash or any other signs or symptoms on ROS at this time.. Historical: - Allergies: 10:59 No Known Allergies; hb - Home Meds: 10:59 Dexilant 60 mg oral capsule,delayed release,biphasic daily [Active]; amlodipine 10 mg hb tablet daily [Active]; Rinvoq 30 mg oral Tablet, Extended Release 24 hr [Active]; mesalamine 1.2 gram oral tablet, delayed release (enteric coated) 3 tabs daily [Active]; lisinopril-hydrochlorothiazide 20-25 mg oral tablet 2 times per day [Active]; levothyroxine 50 mcg tablet daily [Active]; - PMHx: 10:59 chron's; Hypertension; Hypothyroidism; hb - Immunization history:: Adult Immunizations up to date. - Infectious Disease History:: Denies. - Social history:: Smoking status: Patient denies any tobacco usage or history of. ROS: 11:01 Constitutional: Negative for fever, chills, and weight loss, Eyes: Negative for injury, sp3 pain, redness, and discharge, ENT: Negative for injury, pain, and discharge, Neck: Negative for injury, pain, and swelling, Cardiovascular: Negative for chest pain, palpitations, and edema, Respiratory: Negative for shortness of breath, cough, wheezing, and pleuritic chest pain, Back: Negative for injury and pain, MS/Extremity: Negative for injury and deformity, Skin: Negative for injury, rash, and discoloration, Neuro: Negative for headache, weakness, numbness, tingling, and seizure, Psych: Negative for depression, anxiety, suicide ideation, homicidal ideation, and hallucinations, Allergy/Immunology: Negative for hives, rash, and allergies, Endocrine: Negative for neck swelling, polydipsia, polyuria, polyphagia, and marked weight changes, Hematologic/Lymphatic: Negative for swollen nodes, abnormal bleeding, and unusual bruising, 11:01 All other systems are negative, Exam: 11:01 Constitutional: This is a well developed, well nourished patient who is awake, alert, sp3 and in no acute distress. Head/Face: Normocephalic, atraumatic. Eyes: Pupils equal round and reactive to light, extra-ocular motions intact. Lids and lashes normal. Conjunctiva and sclera are non-icteric and not injected. Cornea within normal limits. Periorbital areas with no swelling, redness, or edema. ENT: Nares patent. No nasal discharge, no septal abnormalities noted. External auditory canals are clear. Oropharynx with no redness, swelling, or masses, exudates, or evidence of obstruction, uvula midline. Mucous membranes moist. Neck: Trachea midline, no thyromegaly or masses palpated, and no cervical lymphadenopathy. Supple, full range of motion without nuchal rigidity, or vertebral point tenderness. No Meningismus. Chest/axilla: Normal chest wall appearance and motion. Nontender with no deformity. No lesions are appreciated. Cardiovascular: Regular rate and rhythm with a normal S1 and S2. No gallops, murmurs, or rubs. Normal PMI, no JVD. No pulse deficits. Respiratory: Lungs have equal breath sounds bilaterally, clear to auscultation and percussion. No rales, rhonchi or wheezes noted. No increased work of breathing, no retractions or nasal flaring. Back: No spinal tenderness. No costovertebral tenderness. Full range of motion. Skin: Warm, dry with normal turgor. Normal color with no rashes, no lesions, and no evidence of cellulitis. MS/ Extremity: Pulses equal, no cyanosis. Neurovascular intact. Full, normal range of motion. Neuro: Awake and alert, GCS 15, oriented to person, place, time, and situation. Cranial nerves II-XII grossly intact. Motor strength 5/5 in all extremities. Sensory grossly intact. Cerebellar exam normal. Normal gait. Psych: Awake, alert, with orientation to person, place and time. Behavior, mood, and affect are within normal limits. 11:01 Abdomen/GI: No significant tenderness to palpation, rebound, guarding or peritoneal signs. Increased bowel sounds noted., 11:16 ECG was reviewed by the Attending Physician. EKG demonstrates normal sinus rhythm at 70 sp3 bpm with normal intervals, normal QRS, normal axis, poor R wave progression in lead V3 to V4 with otherwise no significant findings or signs of acute ischemia. Vital Signs: 10:58 BP 176 / 97; Pulse 79; Resp 16; Temp 98.2(O); Pulse Ox 99% on R/A; Weight 110.22 kg; hb Height 5 ft. 10 in. ; Pain 0/10; 11:00 BP 176 / 97; Pulse 69; Resp 17; Pulse Ox 97% ; db 12:00 BP 139 / 69; Pulse 58; Resp 18; Pulse Ox 100% on R/A; db 13:00 BP 135 / 67; Pulse 52; Resp 17; Pulse Ox 99% ; db 14:00 BP 130 / 67; Pulse 54; Resp 18; Pulse Ox 99% on R/A; db 10:58 Body Mass Index 34.87 (110.22 kg, 177.8 cm) hb 10:58 Pain Scale: Adult hb MDM: 10:54 Patient medically screened. sp3 11:02 Data reviewed: vital signs, nurses notes, lab test result(s), EKG, radiologic studies. sp3 ED course: 68-year-old male with Crohn's disease with abdominal cramping and diarrhea. Differential diagnosis includes foodborne illness, Crohn's flare, other GI pathology, among others. I am not highly suspicious for vascular, or cardiac etiologies. Disposition workup and patient course. Workup will include CT scan of the abdomen pelvis, laboratory values, EKG and general supportive care.. 13:07 ED course: CT demonstrates diverticulitis early in nature. No other concerning sp3 findings. Creatinine at 1.5 and patient has received normal saline 1 L. Patient has no significant pain at the current moment. Patient will receive Cipro and Flagyl IV and we will discharge him home on p.o. antibiotics.. 04/02 11:41 Order name: Comprehensive Metabolic Panel EDMS 04/02 11:41 Order name: Troponin High Sensitivity EDMS 04/02 11:41 Order name: Lipase EDMS 04/02 11:41 Order name: CBC with Automated Diff EDMS 04/02 12:08 Order name: CBC with Automated Diff; Complete Time: 13:05 EDMS 04/02 12:08 Order name: Comprehensive Metabolic Panel; Complete Time: 13:05 EDMS 04/02 12:08 Order name: Troponin High Sensitivity; Complete Time: 13:05 EDMS 04/02 12:08 Order name: Lipase; Complete Time: 13:05 EDMS 04/02 11:22 Order name: Abdomen EDMS 04/02 12:05 Order name: CT; Complete Time: 13:05 EDMS 04/02 10:55 Order name: EKG; Complete Time: 10:55 sp3 04/02 10:55 Order name: IV Saline Lock; Complete Time: 11:32 sp3 04/02 10:55 Order name: Labs collected and sent; Complete Time: 11:32 sp3 04/02 10:55 Order name: EKG - Nurse/Tech; Complete Time: 11:15 sp3 Administered Medications: 11:03 Not Given (cancelled): morphineor iv 4 mg IVP once over 4 mins sp3 11:04 Not Given (Cancelled): ondansetron 4 mg IVP once; over 2 minutes sp3 11:18 Drug: morphine IVP or IV 4 mg IVP once over 4 mins Route: IVP; Infused Over: 4 mins; db Site: right forearm; 14:29 Follow up: Response: No adverse reaction db 11:18 Drug: Ondansetron IVP 4 mg IVP once; over 2 minutes Route: IVP; Site: right antecubital;db 14:29 Follow up: Response: No adverse reaction db 11:32 Drug: NS 0.9% IV 1000 ml IV at 1 bolus Per protocol; 1000 mL bolus Route: IV; Rate: 1 db bolus; Site: right antecubital; 13:14 Drug: metroNIDAZOLE IVPB 500 mg 100 ml IVPB at 200 ml/hr once over 30 mins Volume: 100 db ml; Route: IVPB; Rate: 200 ml/hr; Infused Over: 30 mins; Site: right antecubital; 14:25 Follow up: Response: No adverse reaction; IV Status: Completed infusion; IV Intake: db 200ml 13:18 Drug: Ciprofloxacin IVPB 400 mg 200 ml IVPB once over 60 mins Volume: 200 ml; Route: db IVPB; Infused Over: 60 mins; Site: right antecubital; 14:25 Follow up: Response: No adverse reaction; IV Status: Completed infusion; IV Intake: db 200ml Disposition Summary: 04/02/24 13:10 Discharge Ordered Notes: Location: Home sp3 Condition: Stable sp3 Diagnosis - Diverticulitis, gastroenteritis, Crohn's disease sp3 Followup: sp3 - With: Private Physician - When: Upon discharge from the Emergency Department - Reason: Continuance of care Discharge Instructions: - Discharge Summary Sheet sp3 - Diverticulitis sp3 Forms: - Medication Reconciliation Form sp3 - Antibiotic Education sp3 - Prescription Opioid Use sp3 - Patient Portal Instructions sp3 - Leadership Thank You Letter sp3 Prescriptions: - Cipro 500 mg Oral Tablet - take 1 tablet ORAL route every 12 hours for 10 days; 20 tablet; Refills: 0, sp3 Product Selection Permitted - Flagyl 500 mg Oral Tablet - take 1 tablet ORAL route every 8 hours for 10 days; 30 tablet; Refills: 0, sp3 Product Selection Permitted Signatures: Dispatcher [employer] EDMS Sydney Panchal RN RN Dashawn Patricio MD MD sp3 Nina Hoover RN RN db Corrections: (The following items were deleted from the chart) 10:55 10:55 CBC+H.LAB.BRZ ordered. EDMS EDMS 10:55 10:55 COMPREHENSIVE METABOLIC PANEL+C.LAB.BRZ ordered. EDMS EDMS 10:55 10:55 LIPASE+C.LAB.BRZ ordered. EDMS EDMS 10:55 10:55 Urinalysis+U.LAB.BRZ ordered. EDMS EDMS 10:55 10:55 Abdomen Pelvis W Con+CT.RAD.BRZ ordered. EDMS EDMS 11:21 11:20 Abdomen W/Wo Contrast ordered. EDMS EDMS
--- NOTE | 2024-04-02 13:11 | ER ---
Nurse's Notes [facility] Name: Alejandro Carrington Age: 68 yrs Sex: Male : 1955 Arrival Date: 04/02/2024 Time: 10:43 Bed 20 Private MD: Ralf Adams Diagnosis: Diverticulitis, gastroenteritis, Crohn's disease Presentation: 04/02 10:58 Chief complaint: Diarrhea x 5 days. Denies N/V/pain/fever. Coronavirus screen: At this hb time, the client does not indicate any symptoms associated with coronavirus-19. Ebola Screen: No symptoms or risks identified at this time. Initial Sepsis Screen: Does the patient meet any 2 criteria? No. Patient's initial sepsis screen is negative. Does the patient have a suspected source of infection? No. Patient's initial sepsis screen is negative. Risk Assessment: Do you want to hurt yourself or someone else? Patient reports no desire to harm self or others. Onset of symptoms was March 29, 2024. 10:58 Method Of Arrival: Ambulatory 10:58 Acuity: ABDULAZIZ 3 hb Triage Assessment: 11:01 General: Appears in no apparent distress. Behavior is calm, cooperative. Pain: Denies hb pain. Neuro: Level of Consciousness is awake, alert, obeys commands, Oriented to person, place, time, situation. Cardiovascular: Patient's skin is warm and dry. Respiratory: Respiratory effort is even, unlabored, Respiratory pattern is regular, symmetrical. GI: Reports diarrhea. Historical: - Allergies: 10:59 No Known Allergies; hb - Home Meds: 10:59 Dexilant 60 mg oral capsule,delayed release,biphasic daily [Active]; amlodipine 10 mg hb tablet daily [Active]; Rinvoq 30 mg oral Tablet, Extended Release 24 hr [Active]; mesalamine 1.2 gram oral tablet, delayed release (enteric coated) 3 tabs daily [Active]; lisinopril-hydrochlorothiazide 20-25 mg oral tablet 2 times per day [Active]; levothyroxine 50 mcg tablet daily [Active]; - PMHx: 10:59 chron's; Hypertension; Hypothyroidism; hb - Immunization history:: Adult Immunizations up to date. - Infectious Disease History:: Denies. - Social history:: Smoking status: Patient denies any tobacco usage or history of. Screenin:26 [facility] ED Fall Risk Assessment (Adult) History of falling in the last 3 months, db including since admission No falls in past 3 months (0 pts) Confusion or Disorientation No (0 pts) Intoxicated or Sedated No (0 pts) Impaired Gait No (0 pts) Mobility Assist Device Used No (0 pt) Altered Elimination No (0 pt) Score/Fall Risk Level 0 - 2 = Low Risk Oriented to surroundings, Maintained a safe environment. Abuse screen: Denies threats or abuse. Denies injuries from another. Nutritional screening: No deficits noted. Tuberculosis screening: No symptoms or risk factors identified. Assessment: 11:15 Reassessment: Patient appears in no apparent distress at this time. Patient and/or db family updated on plan of care and expected duration. Pain level reassessed. Patient is alert, oriented x 3, equal unlabored respirations, skin warm/dry/pink. General: Appears in no apparent distress. comfortable, Behavior is calm, cooperative. Neuro: Level of Consciousness is awake, alert, obeys commands, Oriented to person, place, time, situation. Respiratory: Airway is patent Respiratory effort is even, unlabored, Respiratory pattern is regular, symmetrical. GI: Abdomen is flat, non-distended, Reports diarrhea. 13:18 Reassessment: DISCHARGE PENDING ANTIBIOTICS FINISH. db 14:00 Reassessment: Patient appears in no apparent distress at this time. Patient and/or db family updated on plan of care and expected duration. Pain level reassessed. Patient is alert, oriented x 3, equal unlabored respirations, skin warm/dry/pink. Vital Signs: 10:58 BP 176 / 97; Pulse 79; Resp 16; Temp 98.2(O); Pulse Ox 99% on R/A; Weight 110.22 kg; hb Height 5 ft. 10 in. ; Pain 0/10; 11:00 BP 176 / 97; Pulse 69; Resp 17; Pulse Ox 97% ; db 12:00 BP 139 / 69; Pulse 58; Resp 18; Pulse Ox 100% on R/A; db 13:00 BP 135 / 67; Pulse 52; Resp 17; Pulse Ox 99% ; db 14:00 BP 130 / 67; Pulse 54; Resp 18; Pulse Ox 99% on R/A; db 10:58 Body Mass Index 34.87 (110.22 kg, 177.8 cm) hb 10:58 Pain Scale: Adult hb ED Course: 10:45 Patient arrived in ED. mr 10:46 Ralf Adams MD is Private Physician. mr 10:51 Dashawn Patricio MD is Attending Physician. sp3 10:53 Nina Hoover, RN is Primary Nurse. db 10:59 Triage completed. hb 11:01 Arm band placed on. hb 11:10 Missed attempt(s): 20 gauge in left antecubital area. BY ANOTHER ED STAFF. Bleeding db controlled, band aid applied, catheter tip intact. 11:15 Initial lab(s) drawn, by me, sent to lab. Inserted saline lock: 22 gauge in right db forearm, using aseptic technique. Blood collected. 11:19 EKG done, by ED staff, reviewed by Dashawn Patricio MD. jr12 11:38 Patient has correct armband on for positive identification. Bed in low position. Call db light in reach. Side rails up X 1. Pulse ox on. NIBP on. Pillow given. 11:52 Abdomen In Process Unspecified. EDMS 12:27 Warm blanket given. db 14:26 Provided Education on: DISCHARGE. db 14:26 No provider procedures requiring assistance completed. IV discontinued, intact, db bleeding controlled, No redness/swelling at site. Administered Medications: 11:03 Not Given (cancelled): morphineor iv 4 mg IVP once over 4 mins sp3 11:04 Not Given (Cancelled): ondansetron 4 mg IVP once; over 2 minutes sp3 11:18 Drug: morphine IVP or IV 4 mg IVP once over 4 mins Route: IVP; Infused Over: 4 mins; db Site: right forearm; 14:29 Follow up: Response: No adverse reaction db 11:18 Drug: Ondansetron IVP 4 mg IVP once; over 2 minutes Route: IVP; Site: right antecubital;db 14:29 Follow up: Response: No adverse reaction db 11:32 Drug: NS 0.9% IV 1000 ml IV at 1 bolus Per protocol; 1000 mL bolus Route: IV; Rate: 1 db bolus; Site: right antecubital; 13:14 Drug: metroNIDAZOLE IVPB 500 mg 100 ml IVPB at 200 ml/hr once over 30 mins Volume: 100 db ml; Route: IVPB; Rate: 200 ml/hr; Infused Over: 30 mins; Site: right antecubital; 14:25 Follow up: Response: No adverse reaction; IV Status: Completed infusion; IV Intake: db 200ml 13:18 Drug: Ciprofloxacin IVPB 400 mg 200 ml IVPB once over 60 mins Volume: 200 ml; Route: db IVPB; Infused Over: 60 mins; Site: right antecubital; 14:25 Follow up: Response: No adverse reaction; IV Status: Completed infusion; IV Intake: db 200ml Medication: 14:26 VIS not applicable for this client. db Intake: 14:25 IV: 200ml; Total: 200ml. db 14:25 IV: 200ml; Total: 400ml. db Outcome: 13:10 Discharge ordered by MD. thomas 14:26 Discharged to home ambulatory, db 14:26 Condition: stable 14:26 Discharge instructions given to patient, Instructed on discharge instructions, follow up and referral plans. Prescriptions given X 2, 14:30 Patient left the ED. db Signatures: Dispatcher [employer] EDGA Jasmyn Fink, Reg Reg mr Sydney Panchal, RN RN Dashawn Gilmore MD MD sp3 Nina Hoover RN RN Anju Burrell jr12
[2024-04-03 14:39] VITALS: BP 130/67; TEMP 98.2; O2SAT 99
--- NOTE | 2024-04-05 14:48 | EKG ---
Test Date: 2024-04-02 Test Time: 11:12:10 Fixed Route Operator: ISSAC MEASUREMENT RESULTS: Intervals: Rate: 69 [place]: 182 QRSD: 78 QT: 384 QTc: 411 [place]: P: 43 [place]: 182 QRS: 4 T: 42 INTERPRETIVE STATEMENTS: Normal sinus rhythm Anterior infarct, age undetermined Abnormal ECG Compared to ECG 02/18/2022 13:55:01 Myocardial infarct finding now present Electronically Signed On 04-05-24 14:40:20 CDT by Alek Garland
== END 2024-04-02 14:30 | disposition home or self-care (01) ==
LOC: ER 10:43
DX: K57.32 Diverticulitis of large intestine without perforation or abscess without bleeding (principal); K52.9 Noninfective gastroenteritis and colitis, unspecified; K50.90 Crohn's disease, unspecified, without complications
CPT/HCPCS: 93005; 85025; 36415; 84484; 83690; 80053; 74177; 99284; Q9967; J2405; J0744; J7030

== ENCOUNTER 2024-05-16 08:47 | Emergency (ER) | payer OTHER ==
[2024-05-16] MEDS ORDERED: dexAMETHasone 10 MG/ML VIAL ONE (09:24)
[2024-05-16] MEDS ORDERED: MORPHINE 4 MG/ML SYR ONE (09:24)
[2024-05-16 09:59] LABS: Absolute Eosinophils 0.1 K/uL (0-0.5); Absolute Neutrophil 3.3 K/uL (1.8-8.0); MPV 7.6 fL (7.6-11.3)
[2024-05-16] MEDS ORDERED: NA CHLORIDE 0.9% 0 ML ONE (10:00)
[2024-05-16] MEDS ORDERED: METHOCARBAMOL 1,000 MG/10 ML VIAL ONE (10:00)
[2024-05-16 10:02] LABS: Absolute Lymphocytes (CBC) 1.2 K/uL (0.7-4.9); Absolute Monocytes 1.1 K/uL (0.1-1.3); Basophils % 0.7 % (0-1.3); Eosinophils % 2.1 % (0-4.4); Hematocrit 40.3 % (39.6-49.0); Hemoglobin 13.3 g/dL (13.6-17.9); Lymphocytes % 20.7 % (15.3-44.8); MCH 29.3 pg (27.0-35.0); MCHC 33.1 g/dL (32.0-36.0); MCV 88.4 fL (80-100); Monocytes % 18.9 % (3.3-12.3); Neutrophils % 57.6 % (41.7-73.7); Nucleated Red Blood Cells % 0.1 % (0-0); Platelets 299 thou/uL (152-406); RBC Red Blood Cell Count 4.56 M/uL (4.33-5.43)
--- NOTE | 2024-05-16 10:06 | RAD REPORT ---
EXAM DESCRIPTION: CT - Spine Lumbar Wo Con - 05/16/2024 9:53 am CLINICAL HISTORY: Radiculopathy. PAIN COMPARISON: No comparisons TECHNIQUE: Axial noncontrast CT imaging of the lumbar spine was performed with coronal and sagittal re-formatted images. All CT scans are performed using dose optimization technique as appropriate and may include automated exposure control or mA/KV adjustment according to patient size. FINDINGS: No acute lumbar spine fracture seen. No aggressive marrow pattern or malalignment. Paraspinal tissues are normal in thickness. No paraspinal abscess or hematoma seen. 7 mm anterolisthesis of L4 on 5 is seen with bilateral spondylolysis. Mild posterior disc bulge is pr esent at L4-5 and L5-S1. IMPRESSION: No acute lumbar spine abnormality seen. 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 Mild posterior disc bulges are present lower lumbar level.
[2024-05-16 10:14] LABS: Albumin 4.4 g/dL (3.4-5.0); Albumin/Globulin Ratio 1.2 (1.1-1.8); Anion Gap 10.7 mEq/L (5.0-15.0); Bilirubin Total 0.6 mg/dL (0.2-1.0); Globulin 3.6 g/dL (2.3-3.5); Potassium 4.7 mEq/L (3.5-5.1)
[2024-05-16 10:25] LABS: Sqamous Epithelial None Seen /HPF (None Seen); Urine Bacteria None Seen /HPF (<20); Urine Microscopic Reflex YN ORDER UMIC; Urine RBC <5 /HPF (None Seen); Urine WBC <5 /HPF (<5)
[2024-05-16 10:26] LABS: Specific Gravity 1.022 (1.005-1.030); Urine Bilirubin NEGATIVE (Negative); Urine Blood Negative (Negative); Urine Clarity Clear (Clear); Urine Color Light-Yellow (Yellow); Urine Glucose NEGATIVE (Negative); Urine Ketones NEGATIVE (Negative); Urine Nitrite NEGATIVE (Negative); Urine Protein NEGATIVE (Negative); Urine Urobilinogen Normal (Normal); Urine pH 5.5 (5.0-7.0)
--- NOTE | 2024-05-16 11:05 | EDPHYS ---
Physician Documentation [facility] Name: Alejandro Carrington Age: 68 yrs Sex: Male : 1955 Arrival Date: 05/16/2024 Time: 08:47 Bed 8 Private MD: ED Physician Charlie Mcleod HPI: 05/16 09:11 This 68 yrs old Male presents to ER via Ambulatory with complaints of Back Pain, Leg cp Pain. 09:11 The patient presents with pain that is acute, with no known mechanism of injury. The cp symptoms are located in the right side of low back. Onset: The symptoms/episode began/occurred last week. The pain radiates to the right foot and right leg. Associated signs and symptoms: Pertinent positives: weakness. 09:11 Severity of symptoms: in the emergency department the symptoms are unchanged, despite cp home interventions. Historical: - Allergies: 09:06 No Known Allergies; hb - Home Meds: 09:06 amlodipine 10 mg tablet daily [Active]; Dexilant 60 mg Oral capsule daily [Active]; hb levothyroxine 50 mcg tablet daily [Active]; levothyroxine 50 mcg tablet daily [Active]; lisinopril-hydrochlorothiazide 20-25 mg Oral tablet 2 times per day [Active]; mesalamine 1.2 gram Oral tablet 3 tabs daily [Active]; Rinvoq 30 mg Oral Tablet [Active]; - PMHx: 09:06 chron's; Hypertension; Hypothyroidism; hb - Immunization history:: Adult Immunizations up to date. - Infectious Disease History:: Denies. - Social history:: Smoking status: Patient denies any tobacco usage or history of. ROS: 09:15 Constitutional: Negative for body aches, chills, fever, poor PO intake, cp 09:15 Back: Positive for pain at rest, pain with movement, of the right low back, Negative cp for injury or acute deformity, decreased range of motion, 09:15 Eyes: Negative for injury, pain, redness, and discharge, cp 09:15 Cardiovascular: Negative for chest pain, edema, palpitations, cp 09:15 Respiratory: Negative for cough, shortness of breath, wheezing, 09:15 Abdomen/GI: Negative for abdominal pain, nausea, vomiting, and diarrhea, bowel incontinence, 09:15 : Negative for urinary symptoms, difficulty urinating, bladder incontinence, testicular pain 09:15 Neuro: Negative for altered mental status, dizziness, headache, numbness, tingling, weakness, 09:15 All other systems are negative, Exam: 09:20 Constitutional: The patient appears in no acute distress, alert, awake, cp non-diaphoretic, non-toxic, well developed, well nourished, 09:20 Head/Face: Normocephalic, atraumatic. cp 09:20 Eyes: Periorbital structures: appear normal, Conjunctiva: normal, Sclera: no appreciated abnormality, Lids and lashes: appear normal, bilaterally, 09:20 ENT: External ear(s): are unremarkable, Nose: is normal, Mouth: Lips: moist, Oral mucosa: moist, Posterior pharynx: Airway: no evidence of obstruction, patent, 09:20 Chest/axilla: Inspection: normal, 09:20 Cardiovascular: Rate: bradycardic, Rhythm: regular, Edema: is not appreciated, JVD: is not appreciated, 09:20 Respiratory: the patient does not display signs of respiratory distress, Respirations: normal, no use of accessory muscles, no retractions, labored breathing, is not present, Breath sounds: are clear throughout, no decreased breath sounds, no stridor, no wheezing, 09:20 Abdomen/GI: Inspection: abdomen appears normal, Palpation: abdomen is soft and non-tender, in all quadrants, 09:20 Back: pain, that is moderate, of the right low back, ROM is painful, with all movement, Straight leg raises: right lower extremity illicits pain, 09:20 Neuro: Orientation: to person, place \T\ time. Mentation: is normal, Sensation: is normal, Vital Signs: 09:04 BP 147 / 78; Pulse 58; Resp 16; Temp 97.7(TE); Pulse Ox 98% on R/A; Weight 113.4 kg; hb Height 5 ft. 10 in. ; Pain 10/10; 11:23 BP 135 / 74; Pulse 53; Resp 18; Pulse Ox 96% ; as6 09:04 Body Mass Index 35.87 (113.40 kg, 177.8 cm) hb 09:04 Pain Scale: Adult hb MDM: 09:03 Patient medically screened. cp 10:00 Differential diagnosis: Cholelithiasis Pyelonephritis ruptured disc, Ureterolithiasis cp vertebral fracture, sciatica, bulging disc, spinal stenosis, cauda equina. 11:05 Data reviewed: vital signs, nurses notes, lab test result(s), radiologic studies, CT cp scan, and as a result, I will discharge patient. 11:05 I considered the following discharge prescriptions or medication management in the emergency department Medications were administered in the Emergency Department. See MAR. Counseling: I had a detailed discussion with the patient and/or guardian regarding the historical points, exam findings, and any diagnostic results supporting the discharge/admit diagnosis, lab results, radiology results, the need for outpatient follow up, a family practitioner, to return to the emergency department if symptoms worsen or persist or if there are any questions or concerns that arise at home. Response to treatment: the patient's symptoms have markedly improved after treatment, and as a result, I will discharge patient. 05/16 09:10 Order name: CBC with Diff; Complete Time: 11:08 05/16 10:11 Interpretation: Normal except: HGB 13.3. 05/16 09:10 Order name: CMP; Complete Time: 10:38 05/16 10:39 Interpretation: Normal except: BUN 32; CRE 1.67; GFR 44; ALK 42; GLOB 3.6. 05/16 09:10 Order name: Lipase; Complete Time: 10:38 05/16 09:10 Order name: Urinalysis w/ reflexes; Complete Time: 10:38 05/16 10:12 Order name: Manual Differential; Complete Time: 11:08 EDMS 05/16 11:08 Interpretation: Normal except: BANDS [F] 4. 05/16 09:10 Order name: CT Lumbar Spine Wo Con; Complete Time: 10:11 05/16 10:12 Interpretation: Report reviewed. 05/16 09:10 Order name: IV Saline Lock; Complete Time: 09:47 05/16 09:10 Order name: Labs collected and sent; Complete Time: 09:47 Administered Medications: 09:40 Drug: morphine IVP or IV 4 mg IVP once over 4 mins Route: IVP; Infused Over: 4 mins; ko1 Site: right forearm; 09:55 Follow up: Response: No adverse reaction; Pain is decreased ko1 09:47 Drug: Decadron - Dexamethasone IVP 10 mg IVP once Route: IVP; Site: right forearm; ko1 10:02 Follow up: Response: No adverse reaction ko1 10:12 Drug: Methocarbamol IVPB 1 grams IVPB once over 1 hrs; (mix in NS 100 mL) Route: IVPB; ko1 Infused Over: 1 hrs; Site: right forearm; 11:09 Follow up: Response: No adverse reaction; IV Status: Completed infusion; IV Intake: as6 100ml Disposition Summary: 05/16/24 11:05 Discharge Ordered Notes: Location: Home cp Problem: new cp Symptoms: have improved cp Condition: Stable cp Diagnosis - Lumbago with sciatica, right side cp Followup: cp - With: Private Physician - When: 2 - 3 days - Reason: Recheck today's complaints Discharge Instructions: - Discharge Summary Sheet cp - Acute Back Pain, Adult cp - Sciatica cp - Back Exercises cp Forms: - Medication Reconciliation Form cp - Antibiotic Education cp - Prescription Opioid Use cp - Patient Portal Instructions cp - Leadership Thank You Letter cp Prescriptions: - Medrol (Andrés) 4 mg Oral Tablets, Dose Pack - take 1 tablet ORAL route as directed - follow package instructions; 1 packet; cp Refills: 0, Product Selection Permitted - methocarbamol 500 mg Oral tablet - take 3 tablets ORAL route every 8 hours As needed; 30 tablet; Refills: 0, cp Product Selection Permitted Addendum: 05/18/2024 14:13 I was immediately available for consultation during this patient's visit. I did not e c2 personally see the patient or discuss the patient with the GAURAV. . Signatures: Dispatcher [employer] EDMS Rafita Bacon PA PA cp Sydney Panchal RN RN Ciara Bailey RN RN ko1 Charlie Mcleod MD MD ec2 Luis Sousa RN as6 Corrections: (The following items were deleted from the chart) 05/16 09:11 09:11 CBC+H.LAB.BRZ ordered. EDMS EDMS 09:11 09:11 COMPREHENSIVE METABOLIC PANEL+C.LAB.BRZ ordered. EDMS EDMS 09:11 09:11 LIPASE+C.LAB.BRZ ordered. EDMS EDMS 09:11 09:11 Urinalysis+U.LAB.BRZ ordered. EDMS EDMS 09:11 09:11 Spine Lumbar Wo Con+CT.RAD.BRZ ordered. EDMS EDMS 11:08 11:08 BANDS [F] 4. cp cp
--- NOTE | 2024-05-16 11:05 | ER ---
Nurse's Notes [facility] Name: Alejandro Carrington Age: 68 yrs Sex: Male : 1955 Arrival Date: 05/16/2024 Time: 08:47 Bed 8 Private MD: Diagnosis: Lumbago with sciatica, right side Presentation: 05/16 09:04 Chief complaint: Low back pain 10/10 that radiates to right leg x 5 days[address] Denies hb injury[address] Adams prescribed lidocaine patches, pregabalin, and meloxicam but has had zero relief. Coronavirus screen: At this time, the client does not indicate any symptoms associated with coronavirus-19. Ebola Screen: No symptoms or risks identified at this time. Initial Sepsis Screen: Does the patient meet any 2 criteria? No. Patient's initial sepsis screen is negative. Does the patient have a suspected source of infection? No. Patient's initial sepsis screen is negative. Risk Assessment: Do you want to hurt yourself or someone else? Patient reports no desire to harm self or others. Onset of symptoms was May 12, 2024. 09:04 Method Of Arrival: Ambulatory hb 09:04 Acuity: ABDULAZIZ 3 hb Historical: - Allergies: 09:06 No Known Allergies; hb - Home Meds: 09:06 amlodipine 10 mg tablet daily [Active]; Dexilant 60 mg Oral capsule daily [Active]; hb levothyroxine 50 mcg tablet daily [Active]; levothyroxine 50 mcg tablet daily [Active]; lisinopril-hydrochlorothiazide 20-25 mg Oral tablet 2 times per day [Active]; mesalamine 1.2 gram Oral tablet 3 tabs daily [Active]; Rinvoq 30 mg Oral Tablet [Active]; - PMHx: 09:06 chron's; Hypertension; Hypothyroidism; hb - Immunization history:: Adult Immunizations up to date. - Infectious Disease History:: Denies. - Social history:: Smoking status: Patient denies any tobacco usage or history of. Screenin:40 [facility] ED Fall Risk Assessment (Adult) History of falling in the last 3 months, ko1 including since admission No falls in past 3 months (0 pts) Confusion or Disorientation No (0 pts) Intoxicated or Sedated No (0 pts) Impaired Gait No (0 pts) Mobility Assist Device Used No (0 pt) Altered Elimination No (0 pt) Score/Fall Risk Level 0 - 2 = Low Risk Oriented to surroundings, Maintained a safe environment, Educated pt \T\ family on fall prevention, incl call for assistance when getting out of bed, Assessed \T\ reinforced patient's understanding of fall precautions, Provided non-skid footwear, Hourly rounding (assess needs \T\ fall precautionary measures) done, Used ambulatory aids as needed (educated on \T\ assisted with), Used gait belt as appropriate. Abuse screen: Denies threats or abuse. Denies injuries from another. Nutritional screening: No deficits noted. Tuberculosis screening: No symptoms or risk factors identified. Assessment: 09:40 General: Appears uncomfortable, Behavior is calm, cooperative, appropriate for age. ko1 Pain: Complains of pain in right low back and right leg and right foot. Neuro: Level of Consciousness is awake, alert, obeys commands, Oriented to person, place, time, situation, Appropriate for age. Cardiovascular: No deficits noted. Respiratory: No deficits noted. GI: No deficits noted. : No deficits noted. EENT: No deficits noted. Derm: No deficits noted. Musculoskeletal: No deficits noted. 11:23 Reassessment: Patient states feeling better. Patient states symptoms have improved. as6 Vital Signs: 09:04 BP 147 / 78; Pulse 58; Resp 16; Temp 97.7(TE); Pulse Ox 98% on R/A; Weight 113.4 kg; hb Height 5 ft. 10 in. ; Pain 10/10; 11:23 BP 135 / 74; Pulse 53; Resp 18; Pulse Ox 96% ; as6 09:04 Body Mass Index 35.87 (113.40 kg, 177.8 cm) hb 09:04 Pain Scale: Adult hb ED Course: 08:48 Patient arrived in ED. rg4 08:57 Rafita Bacon PA is PHCP. cp 08:57 Charlie Mcleod MD is Attending Physician. cp 09:01 Ciara Bailey, MISHA is Primary Nurse. ko1 09:06 Triage completed. hb 09:07 Arm band placed on. hb 09:40 Patient has correct armband on for positive identification. Fall risk band placed. Bed ko1 in low position. Call light in reach. Provided Education on: call light, labs, tests. Pulse ox on. NIBP on. Door closed. Noise minimized. Lights dimmed. Warm blanket given. Pillow given. 09:40 No provider procedures requiring assistance completed. Initial lab(s) drawn, by me, koPriya sent to lab. Inserted saline lock: 22 gauge in right forearm, using aseptic technique. Blood collected. :47 CBC with Diff Sent. ko1 09:47 CMP Sent. ko1 09:47 Lipase Sent. ko1 09:55 CT Lumbar Spine Wo Con In Process Unspecified. EDMS 10:13 Urinalysis w/ reflexes Sent. ko1 10:13 Manual Differential Sent. ko1 11:24 IV discontinued, intact, bleeding controlled, No redness/swelling at site. Pressure as6 dressing applied. Administered Medications: 09:40 Drug: morphine IVP or IV 4 mg IVP once over 4 mins Route: IVP; Infused Over: 4 mins; ko1 Site: right forearm; :55 Follow up: Response: No adverse reaction; Pain is decreased ko1 09:47 Drug: Decadron - Dexamethasone IVP 10 mg IVP once Route: IVP; Site: right forearm; ko1 10:02 Follow up: Response: No adverse reaction ko1 10:12 Drug: Methocarbamol IVPB 1 grams IVPB once over 1 hrs; (mix in NS 100 mL) Route: IVPB; ko1 Infused Over: 1 hrs; Site: right forearm; 11:09 Follow up: Response: No adverse reaction; IV Status: Completed infusion; IV Intake: as6 100ml Medication: 09:40 VIS not applicable for this client. ko1 Intake: 11:09 IV: 100ml; Total: 100ml. as6 Outcome: 11:05 Discharge ordered by . marisol 11:09 Condition: stable as6 11:23 Discharged to home via wheelchair, with significant other, as6 11:23 Discharge instructions given to patient, Instructed on discharge instructions, follow up and referral plans. safe sex practices, Demonstrated understanding of instructions, follow-up care, medications, Prescriptions given X 2, 11:23 Patient left the ED. as6 Signatures: Dispatcher [employer] EDMS Rafita Bacon PA PA cp Sydney Panchal RN RN Maria Esther Licea rg4 Luis Sousa RN RN as6 Leo, Ciara, RN RN ko1
[2024-05-16 11:07] LABS: Band Neutrophils 4 % (0-1); Differential Total Cells Count 100; Segmented Neutrophils 53 % (40-80)
[2024-05-16 11:08] LABS: Blood Morphology Comment NOT SEEN (NOT SEEN); Eosinophils 1 % (0-3); Lymphocytes 33 % (15-42); Monocytes 8 % (0-10); Platelet Estimate ADEQ
[2024-05-16 11:29] VITALS: TEMP 97.7
[2024-05-16 11:50] VITALS: BP 135/74; O2SAT 96
== END 2024-05-16 11:23 | disposition home or self-care (01) ==
LOC: ER 08:47
DX: M54.41 Lumbago with sciatica, right side (principal)
CPT/HCPCS: 96365; 85025; 81001; 36415; 83690; 80053; 72131; 96375; 99284; J1100; J2800